=== PATIENT | female | born 1995 | race Caucasian/White ===

== ENCOUNTER → 2021-02-04 14:51 | Outpatient (BNVA) | payer MEDICARE, MEDICAID, SELFPAY | PROVIDERS: PCP Internal Medicine; Visit Provider Surgery Vascular Surgery | DX: I83.11 Varicose veins of right lower extremity with inflammation (principal) | CPT/HCPCS: 99202 ==

== ENCOUNTER 2023-02-08 10:26 | Outpatient (REF) | payer MEDICARE, MEDICAID, SELFPAY ==
--- NOTE | ~2023-02-08 | US_ITS ---
EXAMINATION: US LOWER EXTREMITY VENOUS (REFLUX EXAM), BILATERAL CLINICAL INDICATION: Varicose veins COMPARISON: None. TECHNIQUE: Color flow triplex imaging and compression Doppler was performed to evaluate both the deep and the superficial systems bilaterally. To evaluate the superficial system, the examination was performed in the upright position. Color-flow Doppler ultrasound and compression ultrasound were utilized. In addition, maneuvers were utilized to demonstrate reflux. FINDINGS: RIGHT: 1. DEEP VENOUS ULTRASOUND OF THE RIGHT LOWER EXTREMITY: Common Femoral Vein: Compressible, normal respiratory variation and augmented flow. Popliteal Vein: Compressible, normal augmentation. Deep Venous Reflux: There is no evidence of reflux in the deep system in either the common femoral vein or the popliteal vein. There is no evidence of a Terry's cyst. 2. SUPERFICIAL ULTRASOUND WITH DOPPLER OF RIGHT LOWER EXTREMITY: RIGHT GREAT SAPHENOUS VEIN: Saphenofemoral Junction: 5 mm. No reflux. Proximal Thigh: 2 mm. 3372 ms reflux. Mid Thigh: 3 mm. 3336 ms reflux. Above Knee: 5 mm. 3372 ms reflux. Below Knee: 5 mm. 3284 ms reflux. Mid Calf: 2 mm. 2916 ms reflux. Ankle: 2 mm. 2448 ms reflux. DUPLICATED GREAT SAPHENOUS VEIN: Yes, medially and laterally. Medially: Saphenofemoral junction: 2 mm. No reflux Mid thigh: 2 mm. No reflux Laterally: Saphenofemoral junction: 3 mm. No reflux Mid thigh: 2 mm. No reflux RIGHT SMALL SAPHENOUS VEIN: Proximal: 2 mm. No reflux. Distal: 2 mm. No reflux. PERFORATORS: None LEFT: 1. DEEP VENOUS ULTRASOUND OF THE LEFT LOWER EXTREMITY: Common Femoral Vein: Compressible, normal respiratory variation and augmented flow. Popliteal Vein: Compressible, normal augmentation. Deep Venous Reflux: There is no evidence of reflux in the deep system in either the common femoral vein or the popliteal vein. There is no evidence of a Terry's cyst. 2. SUPERFICIAL ULTRASOUND WITH DOPPLER OF LEFT LOWER EXTREMITY: LEFT GREAT SAPHENOUS VEIN: Saphenofemoral Junction: 5 mm. No reflux. Proximal Thigh: 2 mm. No reflux. Mid Thigh: 2 mm. No reflux. Above Knee: 2 mm. No reflux. Below Knee: 1 mm. No reflux. Mid Calf: 1 mm. No reflux. Ankle: 2 mm. No reflux. DUPLICATED GREAT SAPHENOUS VEIN: None LEFT SMALL SAPHENOUS VEIN: Proximal: 3 mm. 1504 ms reflux. Distal: 2 mm. No reflux. PERFORATORS: None US/US venous duplex LE BI IMPRESSION: 1. Abnormal right great saphenous venous reflux throughout its entire length. 2. Short segment abnormal venous reflux at the saphenofemoral popliteal junction. 3. No evidence of bilateral lower extremity DVT. Abnormal lower extremity venous reflux times: Superficial and deep calf veins: >500 ms Femoropopliteal veins: >1000 ms Perforating veins: >350 ms Labklaudia N, Isidoro J, Saurav L, Ebony AK, Kristian SS, Alessia Jones M, Harrison WH. Definition of venous reflux in lower-extremity veins.J Vasc Surg. 2003; [phone]:[id number].
== END 2023-02-08 10:27 | disposition home or self-care (01) ==
LOC: HO.US 10:26
PROVIDERS: PCP Internal Medicine; Visit Provider Surgery Vascular Surgery
DX: I83.893 Varicose veins of bilateral lower extremities with other complications (principal)
CPT/HCPCS: 93970

== ENCOUNTER 2023-03-04 12:58 | Outpatient (AMB) | payer MEDICARE, MEDICAID, SELFPAY ==
--- NOTE | 2023-03-04 13:02 | A.OFFVIS_ITS ---
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 Complaints include pain over varicosities, swelling of lower extremities, cramping, fatigue, and heaviness of the lower extremities. It has been affecting there daily activities including walking. It is noted more so in right leg. Of note she had seen us back in 2020 and had not followed up with venous insufficiency testing. Also of note she has a history of brain cancer and was treated with chemo and radiation and this dates back to 2019. 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 Patient denies any previous venous surgery or injections. Patient denies any history of DVT/ PE. Patient denies any history of phlebitis. Trial of compression includes - [id number] They now present for vascular evaluation regarding their varicose veins. [facility] Social History Patient Tobacco Use Status: Never used Tobacco Review of Systems Const Reports as per HPI ENT Reports no additional complaints Card Denies chest pain, Denies chest pain at rest and Denies chest pain with activity Resp Denies chest congestion and Denies cough GI Reports no additional complaints Musc Details: pain over varicosities, aching of lower extremities, swelling, cramping, heaviness and tiredness, itching Denies abnormal gait Skin/Breast Reports pruritus and Denies wounds Neuro Reports no additional complaints and Denies abnormal gait Psych Denies no additional complaints Physical Exam Vital Signs: BMI result Body Mass Index 31.9 Const General: cooperative, healthy appearing and comfortable Orientation/consciousness: oriented to person, oriented to place and oriented to time Neck Carotids: no bruits Chest Chest palpation & inspection: normal inspection of the chest and normal palpation of entire chest wall Resp Effort & Inspection: normal respiratory effort and able to speak in complete sentences Cardio Rate: regular rate Heart sounds: S1 normal heart sound present and S2 normal heart sound present Peripheral pulses: Peripheral pulses 2+ throughout GI Inspection: Yes normal to inspection Skin Other: +2 edema CEAP Classification C4 - skin color changes Ep - Etiology Primary As - superficial veins P - reflux General skin exam: dry skin Neuro General: oriented to person, oriented to place and oriented to time Extrem Right lower extremity: full ROM, normal capillary refill and edema Left lower extremity: full ROM, normal capillary refill and edema Psych Mental Status: mental status grossly normal Assessment & Plan Assessment & Plan (1) Varicose veins of right lower extremity with inflammation: Code(s): I83.11 - Varicose veins of right lower extremity with inflammation Plan: In short, the patient has evidence of venous insufficiency. I have discussed the pathophysiology with the patient. In addition I have provided informational material regarding venous disease to the patient. We have discussed conservative measures including compression, elevation, and exercise. I have also provided a handout regarding appropriate use of compression stockings and where to purchase good compression stockings as well. I have taken the liberty of ordering venous insufficiency testing with the patient. They will follow up with me after testing. The patient had an opportunity to ask questions regarding the treatment plan. All questions were answered. Imaging studies, laboratory studies and physical exam results were discussed and reviewed in detail. No major barriers to understanding were identified. The patient expressed understanding and agreement with the above treatment plan. The patient is aware they should contact our office by phone for worsening of the current condition or the appearance of new symptoms. Thank you for allowing me to participate in the vascular care of this patient. If you have any questions or concerns regarding the treatment for the above condition please do not hesitate to contact me. The office telephone contact is [phone]. This note is constructed using voice recognition software. While every effort has been made to ensure accuracy, molasses preparer errors may have been included. Thank you for allowing me to participate in the care of your patient. Yours sincerely, Van Nicholas MD, FACS, R.P.V.I. (2) Lymphedema: Code(s): I89.0 - Lymphedema, not elsewhere classified Plan: She may have an element of lymphedema as well secondary to her history of cancer. We will workup her venous disease 1st. She will follow up with us a fter noninvasive testing. Orders: Orders US venous duplex LE BI 1 Week I83.11 - Varicose veins of right lower extremity with inflammation Coding Level of Care Code New Pt Level 4 (73348) Diagnoses Varicose veins of right lower extremity with inflammation I83.11 Lymphedema I89.0
[2023-03-04 13:06] VITALS: BMI 31.9
== END 2023-03-04 13:46 | disposition home or self-care (01) ==
PROVIDERS: PCP Internal Medicine; Visit Provider Surgery Vascular Surgery
DX: I83.11 Varicose veins of right lower extremity with inflammation (principal); I89.0 Lymphedema, not elsewhere classified
CPT/HCPCS: 99213

== ENCOUNTER → 2023-03-04 12:58 | Outpatient (BNVA) | payer MEDICARE, MEDICAID, SELFPAY | PROVIDERS: PCP Internal Medicine; Visit Provider Surgery Vascular Surgery | DX: I83.11 Varicose veins of right lower extremity with inflammation (principal); I89.0 Lymphedema, not elsewhere classified | CPT/HCPCS: 99212 ==

== ENCOUNTER 2023-03-22 10:38 | Outpatient (AMB) | payer MEDICARE, MEDICAID, SELFPAY ==
--- NOTE | 2023-03-22 10:48 | A.OFFVIS_ITS ---
Intake Intake Visit Reasons: FU Intake Note: pt here for fu pt states that her both her legs are still in pain and she still gets the swelling she states that her right leg is alot worst Allergies No Known Allergies Allergy (Verified 03/22/23 10:50) HPI FU HPI Details Very pleasant 28-year-old female presents for follow-up regarding venous insufficiency. She does have a significantly swollen and uncomfortable right leg. In particular she is concerned about a cluster varicosities in her right calf. She now presents for routine follow-up. She has had no interval issues. She has used compression stockings with minimal relief [facility] Social History Patient Tobacco Use Status: Never used Tobacco Review of Systems Const Reports as per HPI ENT Reports no additional complaints Card Denies chest pain, Denies chest pain at rest and Denies chest pain with activity Resp Denies chest congestion and Denies cough GI Reports no additional complaints Musc Details: pain over varicosities, aching of lower extremities, swelling, cramping, heaviness and tiredness, itching Denies abnormal gait Skin/Breast Reports pruritus and Denies wounds Neuro Reports no additional complaints and Denies abnormal gait Psych Denies no additional complaints Physical Exam Const General: cooperative, healthy appearing and comfortable Orientation/consciousness: oriented to person, oriented to place and oriented to time Neck Carotids: no bruits Chest Chest palpation & inspection: normal inspection of the chest and normal palpation of entire chest wall Resp Effort & Inspection: normal respiratory effort and able to speak in complete sentences Cardio Rate: regular rate Heart sounds: S1 normal heart sound present and S2 normal heart sound present Peripheral pulses: Peripheral pulses 2+ throughout GI Inspection: Yes normal to inspection Skin Other: +2 edema, large rope-like varicosities greater than 4 mm right calf CEAP Classification C4 - skin color changes Ep - Etiology Primary As - superficial veins P - reflux General skin exam: dry skin Neuro General: oriented to person, oriented to place and oriented to time Extrem Right lower extremity: full ROM, normal capillary refill and edema Left lower extremity: full ROM, normal capillary refill and edema Psych Mental Status: mental status grossly normal Results Reviewed Results Reviewed: Brief summary of venous insufficiency testing is as follows: right great saphenous vein: Positive right small saphenous vein: negative right accessory vein: none present left great saphenous vein: negative left small saphenous vein: negative left accessory vein: none present Please note there is no evidence of any venous aneurysms or significant tortuosity Assessment & Plan Assessment & Plan (1) Varicose veins of right lower extremity with inflammation: Code(s): I83.11 - Varicose veins of right lower extremity with inflammation Plan: This patient has varicose veins with inflammation. They continue to be a source of discomfort for the patient. The patient has tried conservative treatment with compression, leg elevation and exercise program for over 3 months time. They have been compliant with all treatment. This has provided minimal relief for the patient. I do not anticipate this course of treatment will alter the underlying etiology. The patient has been scheduled for lower extremity venous treatment inclusive of --- right great saphenous vein Cyanoacralate ablation. Risks, benefits, and complications of this procedure has been discussed in detail with the patient including but not limited to bleeding, infection, and the development of a DVT. The patient has demonstrated a clear understanding and has consented. We will schedule the patient as soon as possible. Thank you for allowing us to participate in this patient's care. If there are any questions or concerns please do not hesitate to contact us. Coding Level of Care Code Est Pt Level 4 (71938) Diagnoses Varicose veins of right lower extremity with inflammation I83.11
== END 2023-03-22 11:08 | disposition home or self-care (01) ==
PROVIDERS: PCP Internal Medicine; Visit Provider Surgery Vascular Surgery
DX: I83.11 Varicose veins of right lower extremity with inflammation (principal)
CPT/HCPCS: 99214

== ENCOUNTER → 2023-03-22 10:38 | Outpatient (BNVA) | payer MEDICARE, MEDICAID, SELFPAY | PROVIDERS: PCP Internal Medicine; Visit Provider Surgery Vascular Surgery | DX: I83.11 Varicose veins of right lower extremity with inflammation (principal) | CPT/HCPCS: 99212 ==

== ENCOUNTER 2023-04-23 09:24 | Outpatient (AMB) | payer MEDICARE, MEDICAID, SELFPAY ==
--- NOTE | 2023-04-23 11:57 | MHC.OFFVIS ---
Intake Vital Signs 04/23/23 11:58 Height 5 ft 3 in Weight 180 lb BMI 31.9 Intake Visit Reasons: Right GSV Venaseal Allergies No Known Allergies Allergy (Verified 03/22/23 10:50) [facility] Social History Patient Tobacco Use Status: Never used Tobacco Physical Exam Vital Signs: BMI result Body Mass Index 31.9 Office Procedures Vascular Office Procedure Details Details: Diagnosis: Right Leg varicose veins with inflammation Procedure: Endovenous Ablation of the right Great Saphenous Vein with VenaSeal Closure System Anesthesia: Local infiltration 5 cc, Estimated Blood Loss: min Specimen: none Duplex ultrasound was used to map out the insufficient saphenous vein, and access was determined and marked on the overlying skin. The depth and diameter of the vein(s) to be treated was documented. The patient was placed supine on the procedure table and the leg was prepped and draped using sterile technique. Ultasound guidance was again used to localize the access site. 1% lidocaine was injected as a local anesthetic in the subcutaneous tissues at the target location in the GSV in the lower leg. Using ultrasound guidance, access was gained at this location with the 19 gauge thin walled access needle and followed by introduction of a short guidewire, location confirmed with ultrasound. A small, 3 mm incision was made at the access site to allow for introduction and placement of the 7 Fr x7cm introducer/dilator. The dilator and guidewire were removed. The 0.035 guidewire from the VenaSeal kit was then introduced and positioned at the saphenofemoral junction using ultrasound guidance. The 80 cm 7 Fr introducer sheath/dilator was positioned 5cm from the saphenofemoral junction. The guidewire and dilator were removed, and the remaining sheath was flushed with sterile saline, with the syringe remaining in place prior to the next steps. The cyanoacrylate adhesive was precisely primed into the 5 F delivery catheter and this catheter/syringe combination was attached within the dispenser gun. This assembly was introduced through the 7F sheath and positioned 5 cm caudal of the saphenofemoral junction under ultrasound guidance. The steps from the IFU were followed for dispensing amounts, locations and compression times, 2 aliquots proximally with 3 minutes of compression, and 1 aliquot every 3 cm distally with 30 sec of compression along the course of the vessel. Following the last injection and compression sequence, the catheter and introducer sheath were pulled out from the access site. Hemostasis was achieved with manual compression and an adhesive bandage was applied to the incision. Ultrasound confirmed complete coaptation and closure of the treated segments of the GSV, and the absence of any DVT at the saphenofemoral junction. Treatment time was approximately 4 minutes and the vein length treated was 20 cm. The drapes were removed and the patient cleaned and prepared for discharge. Post op ultrasound check is scheduled for 48-72 hours and the patient was given written post-op instructions. 49783 - Endoven Ther Chem Adhes 1st All charges added?: Procedure code (CPT) selection complete Assessment & Plan Assessment & Plan (1) Varicose veins of right lower extremity with inflammation: Code(s): I83.11 - Varicose veins of right lower extremity with inflammation Plan: See op note Coding Level of Care Code Procedure Only Diagnoses Varicose veins of right lower extremity with inflammation I83.11 CPT Codes Details - Vascular 3: 49590 - Endoven Ther Chem Adhes 1st ([id number])
[2023-04-23 11:58] VITALS: BMI 31.9
== END 2023-04-23 11:06 | disposition home or self-care (01) ==
PROVIDERS: PCP Internal Medicine; Visit Provider Surgery Vascular Surgery
DX: I83.11 Varicose veins of right lower extremity with inflammation (principal)
CPT/HCPCS: 36482

== ENCOUNTER → 2023-04-23 09:24 | Outpatient (BNVA) | payer MEDICARE, MEDICAID, SELFPAY | PROVIDERS: PCP Internal Medicine; Visit Provider Surgery Vascular Surgery | DX: I83.11 Varicose veins of right lower extremity with inflammation (principal) | CPT/HCPCS: 36482 ==

== ENCOUNTER 2023-05-13 15:11 | Outpatient (REF) | payer MEDICARE, MEDICAID, SELFPAY | END 2023-05-13 15:12 | disposition home or self-care (01) | LOC: HO.US 15:11 | PROVIDERS: PCP Internal Medicine; Visit Provider Surgery Vascular Surgery | DX: M79.604 Pain in right leg (principal) | CPT/HCPCS: 93971 ==

== ENCOUNTER 2023-06-03 10:29 | Outpatient (AMB) | payer MEDICARE, MEDICAID, SELFPAY ==
[2023-06-03 10:33] VITALS: BP 124/80; PULSE 105; O2SAT 99; BMI 33.7
--- NOTE | 2023-06-03 10:33 | A.OFFVIS_ITS ---
Intake Vital Signs 06/03/23 10:33 Height 5 ft 3 in Weight 190 lb BMI 33.7 BP 124/80 Blood Pressure Location Rt brachial Position Sitting Pulse 105 H Pulse Source Pulse Oximeter Pulse Oximetry (%) 99 Oxygen Delivery Method Room Air Intake Visit Reasons: follow up Venaseal Intake Note: Pt presents to the office today for a follow up right venaseal. Pt states she is feeling well and denies any concerns at this time. Allergies No Known Allergies Allergy (Verified 06/03/23 10:34) HPI follow up Venaseal HPI Details Very pleasant 28-year-old female presents for follow-up status post right great saphenous vein Cyanoacralate ablation. This was performed on April 23. She reports that the leg feels significantly better. She did have a follow-up ultrasound on May 13 as she did forget her post procedure visit. It was negative for DVT at that time. She now presents for routine follow-up. [facility] Social History Alcohol intake: never Patient Tobacco Use Status: Never used Tobacco Review of Systems Const All systems reviewed & are unremarkable except as noted in HPI and below Reports no additional complaints ENT Reports Normal hearing present Card Denies chest pain, Denies chest pain at rest, Denies chest pain with activity and Denies pedal edema Resp Denies cough GI Denies abdominal pain Musc Details: pain over varicosities, aching of lower extremities, swelling, cramping, heaviness and tiredness, itching Denies abnormal gait, Denies muscle cramps and Denies radiating pain into limb Skin/Breast Denies skin ulcer and Denies wounds Neuro Reports Normal hearing present and Denies abnormal gait Psych Reports no additional complaints Physical Exam Vital Signs: Last Vital Signs Pulse 105 H 06/03/23 10:33 BP 124/80 06/03/23 10:33 Pulse Ox 99 06/03/23 10:33 Oxygen Delivery Method Room Air 06/03/23 10:33 BMI result Body Mass Index 33.7 Const General: cooperative, healthy appearing and comfortable Orientation/consciousness: oriented to person, oriented to place and oriented to time HEENT Head: Yes normal to inspection Neck Neck: Yes normal visual inspection Carotids: no bruits Chest Chest palpation & inspection: normal inspection of the chest Resp Effort & Inspection: normal respiratory effort and able to speak in complete sentences Auscultation: clear to auscultation bilaterally, no crackles, no rales, no rhonchi and no wheezes Cardio Rate: regular rate Rhythm: regular rhythm Heart sounds: S1 normal heart sound present and S2 normal heart sound present Bruits: no carotid bruits Peripheral pulses: Peripheral pulses 2+ throughout GI Inspection: Yes normal to inspection Skin Other: +2 edema, large rope-like varicosities greater than 4 mm right calf CEAP Classification C4 - skin color changes Ep - Etiology Primary As - superficial veins P - reflux General skin exam: dry skin Wounds: no wounds Hair: normal Neuro General: oriented to person, oriented to place and oriented to time Cranial nerves: Yes CN's II-XII intact bilaterally and Yes Normal hearing present Cognition (Neuro): normal cognition Motor exam (neuro): 5/5 motor strength present throughout Extrem Other: venous exam: No significant superficial varicosities or spider telan giectasias, minimal edema General: No clubbing, No cyanosis and No edema Right lower extremity: full ROM, normal capillary refill and edema Left lower extremity: full ROM, normal capillary refill and edema Psych Appearance: grossly normal Mental Status: mental status grossly normal Speech and movement: Normal speech and movement present Assessment & Plan Assessment & Plan (1) Varicose veins of right lower extremity with inflammation: Comment: 04/23/2024 right great saphenous vein Cyanoacralate ablation Code(s): I83.11 - Varicose veins of right lower extremity with inflammation Plan: This patient has varicose veins with inflammation. They continue to be a source of discomfort for the patient. The patient has tried conservative treatment with compression, leg elevation and exercise program for over 3 months time. They have been compliant with all treatment. This has provided minimal relief for the patient. I do not anticipate this course of treatment will alter the underlying etiology. The patient has been scheduled for lower extremity venous treatment inclusive of --- right leg microphlebectomy. Risks, benefits, and complications of this procedure has been discussed in detail with the pat ient including but not limited to bleeding, infection, and the development of a DVT. The patient has demonstrated a clear understanding and has consented. We will schedule the patient as soon as possible. Thank you for allowing us to participate in this patient's care. If there are any questions or concerns please do not hesitate to contact us. Coding Level of Care Code Est Pt Level 4 (47133) Diagnoses Varicose veins of right lower extremity with inflammation I83.11
== END 2023-06-03 11:00 | disposition home or self-care (01) ==
PROVIDERS: PCP Internal Medicine; Visit Provider Surgery Vascular Surgery
DX: I83.11 Varicose veins of right lower extremity with inflammation (principal)
CPT/HCPCS: 99214

== ENCOUNTER → 2023-06-03 10:29 | Outpatient (BNVA) | payer MEDICARE, MEDICAID, SELFPAY | PROVIDERS: PCP Internal Medicine; Visit Provider Surgery Vascular Surgery | DX: I83.11 Varicose veins of right lower extremity with inflammation (principal) | CPT/HCPCS: 99212 ==

== ENCOUNTER 2023-11-17 14:40 | Outpatient (REF) | payer MEDICARE, MEDICAID, SELFPAY ==
[2023-11-17 18:29] LABS: TSH reflex Free T4 2.83 uIU/mL (0.32-4.0)
== END 2023-11-17 14:41 | disposition home or self-care (01) ==
LOC: HO.CHCLDS 14:40
PROVIDERS: Visit Provider Internal Medicine
DX: F41.9 Anxiety disorder, unspecified (principal)
CPT/HCPCS: 36415; 84443

== ENCOUNTER 2024-11-17 11:03 | Outpatient (REF) | payer MEDICARE, MEDICAID, SELFPAY ==
--- OUTSIDE RECORDS SUMMARY | 2024-11-17 11:41 | XMS_ITS | Patient Health Record ---
Author Organization [facility] Address [address] [place] [id number] Care Team Providers Care Glassie Name Role Phone RADHA RODRIGUEZ Unavailable [phone] Reason For Referral No Information Medications Medication SIG (Take, Route, Frequency, Duration) Notes Start Date End Date Status Mirtazapine 7.5 MG 2 tablets at bedtime Orally Once a day; Duration: 30 day(s) 0.5 tab at bedtime prn Active clonazePAM 0.5 MG 1 tablet at bedtime Orally BID Active LaMICtal 200 MG 1 tablet Orally Once a day; Duration: 30 day(s) 550mg daily (2 200mg tabs, one 150mg tab) Active Keppra 750 MG 1 tablet Orally Twic e a day; Duration: 30 day(s) 2.5 tabs every 12 hrs (1875mg every 12 hr) Active Social History Tobacco Use: Social History Observation Description Date Details (start date - stop date) Never Smoker NA - NA Tobacco Use/Smoking Question Answer Notes Are you a nonsmoker Alcohol Screen (Audit-C) Question Answer Notes Did you have a drink containing alcohol in the p ast year? No Points 0 Interpretation Negative Problems Problem Type SNOMED Code ICD Code Onset Dates Problem Status W/U Status Risk Notes Problem SI - Stress incontinence (03949379) Stress incontinence (female) (male) (N39.3) Active confirmed Problem Malignant neoplasm of brain (630598371) Malignant neoplasm of brain, unspecified (C71.9) Active confirmed Plan Of Treatment Pending Test Test Name Order Date Urinalysis 03/09/2019 ANTI-HEPATITIS C 03/09/2019 HEP. B SURF. AG 03/09/2019 THIN PREP, HPV IF ASCUS (21-29YR) 2018 SYPHILIS TESTING 03/09/2019 HIV AB-AG 4TH GENERATION 03/09/2019 ULTRASOUND 03/18/2020 Medical (General) History Medical History History ICD Code Headache 784.0 Malignant neoplasm of brain, unspecified C71.9 Anxiety disorder, unspecified F41.9 Major depressive disorder, recurrent, mi ld F33.0 Surgical History Surgery Date(Month/Year) Crainiotomy - initial tumor debulking 2016 Crainiotomy - recurrent tumor debulking (99.9% removed) 07/2018 Appendix 2013 Hospitalization History Reason Date(Month/Year)
--- OUTSIDE RECORDS SUMMARY | 2024-11-17 11:41 | XMS_ITS | Clinical Summary ---
Author Organization [facility] Address [address] [place] [phone] Phone Care Team Providers Care Manager Programming Name Role Phone Unavailable Primary Care Provider Unavailabl e Immunizations Immunization Administration Dates Next Due DTP 01/01/1998, 5,1993, 994,1993 HPV, Quadrivalent 11/06/2008 Hep B, ped/adol 1993,1993,1993 Hib (PRP-T) 04/16/1994, 4,1993, 993 IPV 1993,1993,1993 MMR 01/15/1997,04/09/1994 Meningococcal Conj (Menactra) MCV4P 07/27/2005 OPV 01/01/1998 Tdap 07/27/2005 Varicella 11/06/2008,01/01/1998 Family History Relation Name Status Comments Father Alive Father: Alive a nd well Maternal Grandfather Materna l grandfather: Hypertension Maternal Grandmother Materna l grandmother: Elevated cholesterol, cardiac, Diabetes mellitus Mother Mother: gestati onal diabetes Other Family history of spinabifida Social History Tobacco Use Types Packs/Day Years Used Date Smoking Tobacco: Never Assessed Comments Unknown Sex and Gender Information Value Date Recorded Sex Assigned at Not on file Legal Sex Female 4:39 PM EDT Gender Identity Not on file Sexual Orientation Not on file Plan of Treatment Health Maintenance Due Date Last Done Comments HPV Vaccines (2 - 3-dose series) 12/04/2008 11/06/2008 DTaP,Tdap,and Td Vaccines (7 - Td or Tdap) 07/28/2015 07/27/2005, 01/01/1998, 07/30/1994, Additional history exists COVID-19 Vaccine ( season) 2024 Influenza Vaccines (#1) 2024 Hepatitis B Vaccines Completed 1993, 1993, 1993 HIB Vaccines Completed 04/16/1994, 12/1993, 1993, Additional history exists MMR Vaccines Completed 01/15/1997, 04/09/1994 IPV Vaccines Completed 01/01/1998, 12/1993, 1993, Additional history exists Meningococcal Vaccine Aged Out 07/27/2005 No annamaria cindy eligible based on patient's age to complete this topic Varicella Vaccines Completed 11/06/2008, 01/01/1998 Hepatitis A Vaccines Aged Out No long er eligible based on patient's age to complete this topic Men B Vaccine Aged Out No longer elig ible based on patient's age to complete this topic Pneumococcal Vaccine Aged Out No long er eligible based on patient's age to complete this topic
--- OUTSIDE RECORDS SUMMARY | 2024-11-17 11:41 | XMS_ITS | Data Portability ---
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 --November 26, 2021 2 weeks of transient spontaneous onset of episodic random abnormal odors, once or twice a day, sometimes every other day context living next to a [employer]. 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 --November 27, 2021 lamotrigine 8.6 on 400 mg 8 AM/400 mg 8 PM --April 26, 2023: No seizures or auras, on antiseizure medications as detailed in the plan below, daily headaches that I newly appreciate, partially better with amitriptyline 10 mg every evening from neuro-oncology. I offered to increase the amitriptyline and take over management to 1.5 tablets of the 10 mg pill every evening and if that does not help enough, 2 tablets. She likes this idea. She will share my note from the patient portal with the psychiatrist so they understand the extent to which the clonazepam may be partially for her anxiety but may also be for breakthrough seizure; and they understand that Zyprexa and Wellbutrin could cause side effects in the past. Lamotrigine level on 400 mg twice a day May 16, 2021 is 8.2. This documents an appropriate level without side effects Compared to 12.12 June 2020 as the level where she had transient double vision, on 475 mg twice a day. To review, in October 2019, when there was likely toxicity, lamotrigine was 25 On 550 mg lamotrigine twice a day. Subsequent lamotrigine lab result, when she was without symptoms, November 2019 On lamotrigine 475 mg twice a day, revealed 15.1, high end of normal. 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 The accuracy of a single blood level maybe less than +/ -3 for the maximum throughout the day. Toxicity may have emerged as she has lost weight. Levetiracetam is apparently at a good dosage, 1000 g twice a day. I had concerned that tiredness in recent past was from levetiracetam, as recently as early 2020. 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 Anxiety medications, mirtazapine and clonazepam, are at a good level. She lowered her mirtazapine by herself as far as I could understand June 19, 2020. She has wondered whether she needs it for anxiety and/or sleep. I have never been clear whether clonazepam, when introduced, addressed to breakthrough seizures or anxiety. Clonazepam is not a first-line medication for long-term control of either anxiety or seizures. However, as things are going so well, I am not concerned suggest any changes. If she wants to reduce medication at some point, I will suggest reduction of clonazepam first as opposed to reduction of mirtazapine. 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 In June 2020 she started using a new apt that she downloaded that is for epilepsy that helps her track her medication and reminds her to take her medication. It has the ability to share with her provider. I tell her about our patient portal which is about change from [facility] [employer] to [employer]. Once the changes made she will think about sharing via the [employer] portal. PLAN Elyssa Hernadez April 26, 2023 To help right sided Headaces: I will take over management from neuro-oncology of the amitriptyline to increase amitriptyline: Amitriptyline 10 mg tablets, 1.5-2.0 tablets every evening. Start with 1.5 tablets. Wait 1 month and if this is not enough to go up to 2 tablets if there are no side effects. Watch out for side effects of dry mouth or tiredness TO PREVENT SEIZURES: CONTINUE LAMOTRIGINE 2 FULL 200 mg tablets (400mg) lamotrigine 2 tablets 8 AM & 8PM CONTINUE levetiracetam 1000 mg tablets, 1 tab every 8 AM and 8 PM FOR ANXIETY AND SLEEP AND BLURRY VISION ISSUES: CONTINUE clonazepam 0.5 mg tablets, one tablet 6 AM, at waking, one tablet 2 PM FOR ANXIETY AND SLEEP CONTINUE Mirtazapine 15 -mg tablets, 1.0 tablets every night, 7pm, which is one hour before bedtime. On your personal cell phone, please continue using an alarm every 12 hours for your medication to help you remember. 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 --November 26, 2021 2 weeks of transient spontaneous onset of episodic random abnormal odors, once or twice a day, sometimes every other day context living next to a [employer]. 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 --November 27, 2021 lamotrigine 8.6 on 400 mg 8 AM/400 mg 8 PM --April 26, 2023: No seizures or auras, on antiseizure medications as detailed in the plan below, daily headaches that I newly appreciate, partially better with amitriptyline 10 mg every evening from neuro-oncology. July 20, 2023 headache no better and new dry mouth on amitriptyline 10 mg => 20 mg; no seizures; still anxious at bedtime. >>>>>>>>>>>>July 20, 2023 First priority is to get away from the new side effect. She agrees to decrease amitriptyline back down to 10 mg. As I took over the amitriptyline, I will stay in charge of management at this smaller dose which has helped partially with headache. Next two priorities are different directions for the headache and new pharmacological treatment direction for her anxiety. I will ask her which is higher priority next time. If it is the anxiety at bedtime, and if [facility] is not moving toward a psychiatric medication provider (as I had hoped in April, but which seems not true now, just neuropsych and psychotherapy psychotherapy is a good thing), and I will consider increasing the mirtazapine headache is the higher priority, I will consider an adjunct to the amitriptyline 10 mg, perhaps a CGRP inhibitor medication >>>>>>>>>>>>[facility] 2022 She will share my note from the patient portal with the psychiatrist so they understand the extent to which the clonazepam may be partially for her anxiety but may also be for breakthrough seizure; and they understand that Zyprexa and Wellbutrin could cause side effects in the past. Lamotrigine level on 400 mg twice a day May 16, 2021 is 8.2. This documents an appropriate level without side effects Compared to 12.12 June 2020 as the level where she had transient double vision, on 475 mg twice a day. To review, in October 2019, when there was likely toxicity, lamotrigine was 25 On 550 mg lamotrigine twice a day. Subsequent lamotrigine lab result, when she was without symptoms, November 2019 On lamotrigine 475 mg twice a day, revealed 15.1, high end of normal. 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 The accuracy of a single blood level maybe less than +/ -3 for the maximum throughout the day. Toxicity may have emerged as she has lost weight. Levetiracetam is apparently at a good dosage, 1000 g twice a day. I had concerned that tiredness in recent past was from levetiracetam, as recently as early 2020. 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 Anxiety medications, mirtazapine and clonazepam, are at a good level. She lowered her mirtazapine by herself as far as I could understand June 19, 2020. She has wondered whether she needs it for anxiety and/or sleep. I have never been clear whether clonazepam, when introduced, addressed to breakthrough seizures or anxiety. Clonazepam is not a first-line medication for long-term control of either anxiety or seizures. However, as things are going so well, I am not concerned suggest any changes. If she wants to reduce medication at some point, I will suggest reduction of clonazepam first as opposed to reduction of mirtazapine. 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 In June 2020 she started using a new apt that she downloaded that is for epilepsy that helps her track her medication and reminds her to take her medication. It has the ability to share with her provider. I tell her about our patient portal which is about change from [employer] to [employer]. Once the changes made she will think about sharing via the [employer] portal. PLAN Elyssa Hernadez July 20, 2023 To help right sided Headaces , but remobve dry mouth: Amitriptyline 10 mg tablets, 2 -> 1 tablets every evening. TO PREVENT SEIZURES: CONTINUE LAMOTRIGINE 2 FULL 200 mg tablets (400mg) lamotrigine 2 tablets 8 AM & 8PM CONTINUE levetiracetam 1000 mg tablets, 1 tab every 8 AM and 8 PM FOR ANXIETY AND SLEEP AND BLURRY VISION ISSUES: CONTINUE clonazepam 0.5 mg tablets, one tablet 6 AM, at waking, one tablet 2 PM FOR ANXIETY AND SLEEP CONTINUE Mirtazapine 15 -mg tablets, 1.0 tablets every night, 7pm, which is one hour before bedtime. On your personal cell phone, please continue using an alarm every 12 hours for your medication to help you remember. 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 --November 26, 2021 2 weeks of transient spontaneous onset of episodic random abnormal odors, once or twice a day, sometimes every other day context living next to a [employer]. 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 --November 27, 2021 lamotrigine 8.6 on 400 mg 8 AM/400 mg 8 PM --April 26, 2023: No seizures or auras, on antiseizure medications as detailed in the plan below, daily headaches that I newly appreciate, partially better with amitriptyline 10 mg every evening from neuro-oncology. July 20, 2023 headache no better and new dry mouth on amitriptyline 10 mg => 20 mg; no seizures; still anxious at bedtime. --October 18, 2023 no seizures; headache better with using sunglasses; dry mouth better with amitriptyline down to 10 mg; no longer feeling anxious at bedtime. >>>>>>>>>>>>October 18, 2023 We agreed to keep medications the same, as detailed in scripts below. >>>>>>>>>>>>July 20, 2023 First priority is to get away from the new side effect. She agrees to decrease amitriptyline back down to 10 mg. As I took over the amitriptyline, I will stay in charge of management at this smaller dose which has helped partially with headache. Next two priorities are different directions for the headache and new pharmacological treatment direction for her anxiety. I will ask her which is higher priority next time. If it is the anxiety at bedtime, and if [facility] is not moving toward a psychiatric medication provider (as I had hoped in April, but which seems not true now, just neuropsych and psychotherapy psychotherapy is a good thing), and I will consider increasing the mirtazapine headache is the higher priority, I will consider an adjunct to the amitriptyline 10 mg, perhaps a CGRP inhibitor medication >>>>>>>>>>>>[facility] 2022 She will share my note from the patient portal with the psychiatrist so they understand the extent to which the clonazepam may be partially for her anxiety but may also be for breakthrough seizure; and they understand that Zyprexa and Wellbutrin could cause side effects in the past. Lamotrigine level on 400 mg twice a day May 16, 2021 is 8.2. This documents an appropriate level without side effects Compared to 12.12 June 2020 as the level where she had transient double vision, on 475 mg twice a day. To review, in October 2019, when there was likely toxicity, lamotrigine was 25 On 550 mg lamotrigine twice a day. Subsequent lamotrigine lab result, when she was without symptoms, November 2019 On lamotrigine 475 mg twice a day, revealed 15.1, high end of normal. 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 The accuracy of a single blood level maybe less than +/ -3 for the maximum throughout the day. Toxicity may have emerged as she has lost weight. Levetiracetam is apparently at a good dosage, 1000 g twice a day. I had concerned that tiredness in recent past was from levetiracetam, as recently as early 2020. 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 Anxiety medications, mirtazapine and clonazepam, are at a good level. She lowered her mirtazapine by herself as far as I could understand June 19, 2020. She has wondered whether she needs it for anxiety and/or sleep. I have never been clear whether clonazepam, when introduced, addressed to breakthrough seizures or anxiety. Clonazepam is not a first-line medication for long-term control of either anxiety or seizures. However, as things are going so well, I am not concerned suggest any changes. If she wants to reduce medication at some point, I will suggest reduction of clonazepam first as opposed to reduction of mirtazapine. 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 In June 2020 she started using a new apt that she downloaded that is for epilepsy that helps her track her medication and reminds her to take her medication. It has the ability to share with her provider. I tell her about our patient portal which is about change from [facility] [employer] to [employer]. Once the changes made she will think about sharing via the [employer] portal. PLAN Elyssa Hernadez October 18, 2023 To help right sided Headaces , but remove dry mouth: Amitriptyline 10 mg tablets, 1 tablets every evening. TO PREVENT SEIZURES: CONTINUE LAMOTRIGINE 2 FULL 200 mg tablets (400mg) lamotrigine 2 tablets 8 AM & 8PM CONTINUE levetiracetam 1000 mg tablets, 1 tab every 8 AM and 8 PM FOR ANXIETY AND SLEEP AND BLURRY VISION ISSUES: CONTINUE clonazepam 0.5 mg tablets, one tablet 6 AM, at waking, one tablet 2 PM FOR ANXIETY AND SLEEP CONTINUE Mirtazapine 15 -mg tablets, 1.0 tablets every night, 7pm, which is one hour before bedtime. On your personal cell phone, please continue using an alarm every 12 hours for your medication to help you remember. 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 --November 26, 2021 2 weeks of transient spontaneous onset of episodic random abnormal odors, once or twice a day, sometimes every other day context living next to a [employer]. 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 --November 27, 2021 lamotrigine 8.6 on 400 mg 8 AM/400 mg 8 PM --April 26, 2023: No seizures or auras, on antiseizure medications as detailed in the plan below, daily headaches that I newly appreciate, partially better with amitriptyline 10 mg every evening from neuro-oncology. July 20, 2023 headache no better and new dry mouth on amitriptyline 10 mg => 20 mg; no seizures; still anxious at bedtime. --October 18, 2023 no seizures; headache better with using sunglasses; dry mouth better with amitriptyline down to 10 mg; no longer feeling anxious at bedtime. >>>>>>>>>>>>On License [facility] 2023 continuing seizure-free. Continuing without tumor recurrence as of ~3 months ago, on a q4-month surveillance schedule with oncology. Headaches bothering her more. >>>>>>>>>>>>On License Of [facility] 2023 We will make no changes to medications for seizure, anxiety or sleep as detailed in plan below. Amitriptyline for headache has been taken over by her headaches schedule specialist, as detailed in the plan below. My office is a bit of a trip for her from [place] but closer than [place]. She had not known that I have some experience with treating headaches, as a neurologist. I am happy to have her continue with the neurologist/headac he specialist in [place], but if she wants to work with me, for her headache, we can arrange that as well. There would have to be a definitive decision. This is especially true dealing with medication such as Ajovy, who her headache specialist is trying to get approved. Two healthcare providers cannot both get approval for prescription of the same medication for a single patient. She understands. She will think about this. If she works with me, we can arrange that a first administration of Ajovy can be with a sample, in the office, with me guiding administration to minimize her apprehension about the pen injection >>>>>>>>>>>>October 18, 2023 We agreed to keep medications the same, as detailed in scripts below. >>>>>>>>>>>>July 20, 2023 First priority is to get away from the new side effect. She agrees to decrease amitriptyline back down to 10 mg. As I took over the amitriptyline, I will stay in charge of management at this smaller dose which has helped partially with headache. Next two priorities are different directions for the headache and new pharmacological treatment direction for her anxiety. I will ask her which is higher priority next time. If it is the anxiety at bedtime, and if [facility] is not moving toward a psychiatric medication provider (as I had hoped in April, but which seems not true now, just neuropsych and psychotherapy psychotherapy is a good thing), and I will consider increasing the mirtazapine headache is the higher priority, I will consider an adjunct to the amitriptyline 10 mg, perhaps a CGRP inhibitor medication >>>>>>>>>>>>[facility] 2022 She will share my note from the patient portal with the psychiatrist so they understand the extent to which the clonazepam may be partially for her anxiety but may also be for breakthrough seizure; and they understand that Zyprexa and Wellbutrin could cause side effects in the past. Lamotrigine level on 400 mg twice a day May 16, 2021 is 8.2. This documents an appropriate level without side effects Compared to 12.12 June 2020 as the level where she had transient double vision, on 475 mg twice a day. To review, in October 2019, when there was likely toxicity, lamotrigine was 25 On 550 mg lamotrigine twice a day. Subsequent lamotrigine lab result, when she was without symptoms, November 2019 On lamotrigine 475 mg twice a day, revealed 15.1, high end of normal. 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 The accuracy of a single blood level maybe less than +/ -3 for the maximum throughout the day. Toxicity may have emerged as she has lost weight. Levetiracetam is apparently at a good dosage, 1000 g twice a day. I had concerned that tiredness in recent past was from levetiracetam, as recently as early 2020. 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 Anxiety medications, mirtazapine and clonazepam, are at a good level. She lowered her mirtazapine by herself as far as I could understand June 19, 2020. She has wondered whether she needs it for anxiety and/or sleep. I have never been clear whether clonazepam, when introduced, addressed to breakthrough seizures or anxiety. Clonazepam is not a first-line medication for long-term control of either anxiety or seizures. However, as things are going so well, I am not concerned suggest any changes. If she wants to reduce medication at some point, I will suggest reduction of clonazepam first as opposed to reduction of mirtazapine. 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 In June 2020 she started using a new apt that she downloaded that is for epilepsy that helps her track her medication and reminds her to take her medication. It has the ability to share with her provider. I tell her about our patient portal which is about change from [employer] to [employer]. Once the changes made she will think about sharing via the [employer] portal. PLAN Elyssa Hernadez March 30, 2024 Right sided Headaces Amitriptyline, continue with your new headache specialist in [place]; with higher dose casuing dry mouth, previously without dry mouth at reduced down dosage (since [facility] 2023) of 10 mg tablets, 1 tablets every evening. TO PREVENT SEIZURES: CONTINUE LAMOTRIGINE 2 FULL 200 mg tablets (400mg) lamotrigine 2 tablets 8 AM & 8PM CONTINUE levetiracetam 1000 mg tablets, 1 tab every 8 AM and 8 PM FOR ANXIETY AND SLEEP AND BLURRY VISION ISSUES: CONTINUE clonazepam 0.5 mg tablets, one tablet 6 AM, at waking, one tablet 2 PM FOR ANXIETY AND SLEEP CONTINUE Mirtazapine 15 -mg tablets, 1.0 tablets every night, 7pm, which is one hour before bedtime. On your personal cell phone, please continue using an alarm every 12 hours for your medication to help you remember. 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 --November 26, 2021 2 weeks of transient spontaneous onset of episodic random abnormal odors, once or twice a day, sometimes every other day context living next to a [employer]. 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 --November 27, 2021 lamotrigine 8.6 on 400 mg 8 AM/400 mg 8 PM --April 26, 2023: No seizures or auras, on antiseizure medications as detailed in the plan below, daily headaches that I newly appreciate, partially better with amitriptyline 10 mg every evening from neuro-oncology. July 20, 2023 headache no better and new dry mouth on amitriptyline 10 mg => 20 mg; no seizures; still anxious at bedtime. --October 18, 2023 no seizures; headache better with using sunglasses; dry mouth better with amitriptyline down to 10 mg; no longer feeling anxious at bedtime. --March 30, 2024 continuing seizure-free. Continuing without tumor recurrence as of ~3 months ago, on a q4-month surveillance schedule with oncology. Headaches bothering her more. --August 21, 2024 blurry vision and nausea 5-6 times per month; no symptoms to suggest seizure; no tumor recurrence 4 months ago, oncology follow-up tomorrow. Headache still bothering her Ajovy too expensive. >>>>>>>>>>>>August 21, 2024 I will send lamotrigine level. As discussed in HPI, if high lamotrigine is not the answer, I will focus on interaction with headache. She has wondered whether clonazepam increase would treat this. This is not my first thought. We will reevaluate in general if it is not lamotrigine level or headache. >>>>>>>>>>>>On License Of [facility] er 2023 No changes >>>>>>>>>>>>October 18, 2023 We agreed to keep medications the same, as detailed in scripts below. >>>>>>>>>>>>July 20, 2023 First priority is to get away from the new side effect. She agrees to decrease amitriptyline back down to 10 mg. As I took over the amitriptyline, I will stay in charge of management at this smaller dose which has helped partially with headache. Next two priorities are different directions for the headache and new pharmacological treatment direction for her anxiety. I will ask her which is higher priority next time. If it is the anxiety at bedtime, and if [facility] is not moving toward a psychiatric medication provider (as I had hoped in April, but which seems not true now, just neuropsych and psychotherapy psychotherapy is a good thing), and I will consider increasing the mirtazapine headache is the higher priority, I will consider an adjunct to the amitriptyline 10 mg, perhaps a CGRP inhibitor medication >>>>>>>>>>>>Dece er 2022 She will share my note from the patient portal with the psychiatrist so they understand the extent to which the clonazepam may be partially for her anxiety but may also be for breakthrough seizure; and they understand that Zyprexa and Wellbutrin could cause side effects in the past. Lamotrigine level on 400 mg twice a day May 16, 2021 is 8.2. This documents an appropriate level without side effects Compared to 12.12 June 2020 as the level where she had transient double vision, on 475 mg twice a day. To review, in October 2019, when there was likely toxicity, lamotrigine was 25 On 550 mg lamotrigine twice a day. Subsequent lamotrigine lab result, when she was without symptoms, November 2019 On lamotrigine 475 mg twice a day, revealed 15.1, high end of normal. 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 The accuracy of a single blood level maybe less than +/ -3 for the maximum throughout the day. Toxicity may have emerged as she has lost weight. Levetiracetam is apparently at a good dosage, 1000 g twice a day. I had concerned that tiredness in recent past was from levetiracetam, as recently as early 2020. 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 Anxiety medications, mirtazapine and clonazepam, are at a good level. She lowered her mirtazapine by herself as far as I could understand June 19, 2020. She has wondered whether she needs it for anxiety and/or sleep. I have never been clear whether clonazepam, when introduced, addressed to breakthrough seizures or anxiety. Clonazepam is not a first-line medication for long-term control of either anxiety or seizures. However, as things are going so well, I am not concerned suggest any changes. If she wants to reduce medication at some point, I will suggest reduction of clonazepam first as opposed to reduction of mirtazapine. 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 In June 2020 she started using a new apt that she downloaded that is for epilepsy that helps her track her medication and reminds her to take her medication. It has the ability to share with her provider. I tell her about our patient portal which is about change from [facility] to [facility]. Once the changes made she will think about sharing via the [employer] portal. PLAN Elyssa Hernadez August 21, 2024 Lamotrigine level TO PREVENT SEIZURES: CONTINUE LAMOTRIGINE 2 FULL 200 mg tablets (400mg) lamotrigine 2 tablets 8 AM & 8PM CONTINUE levetiracetam 1000 mg tablets, 1 tab every 8 AM and 8 PM FOR ANXIETY AND SLEEP AND BLURRY VISION ISSUES: CONTINUE clonazepam 0.5 mg tablets, one tablet 6 AM, at waking, one tablet 2 PM FOR ANXIETY AND SLEEP CONTINUE Mirtazapine 15 -mg tablets, 1.0 tablets every night, 7pm, which is one hour before bedtime. On your personal cell phone, please continue using an alarm every 12 hours for your medication to help you remember. Right sided Headaces Amitriptyline, continue with your new headache specialist in [place]; with higher dose casuing dry mouth, previously without dry mouth at reduced down dosage (since July 2023) of 10 mg tablets, 1 tablets every evening. Follow-up 6 months [email or web address] Not available 08/21/2024 12:48:36 Plan of Treatment Reminders Order Date Submit Date Provider Last Modified By Organization Details Last Modified Time Details Appointments FOLLOW UP EXT 2024 12:00P M Charles Quintero MD PhD Not available Not available Not available Lab lamotrigi ne, serum - g40.9 2024 025 SHRADDHA [facility] (Centralized Electronic Ordering - All Locations), Patient Can Go To The Location Of Their Choice, [id number] 10/30/2024 15:05:59 Referral None recorded. Procedures None recorded. Surgeries None recorded. Imaging None recorded. Medication Orders mirtazapi ne 15 mg tablet 2024 025 [facility] #[id number], [address], [place], [id number], 08/21/2024 12:29:59 lamotrigi ne 200 mg tablet 2024 025 [facility] #[id number], [address], [place], [id number], 08/21/2024 12:29:59 levetirac etam 1,000 mg tablet 2024 025 [facility] #[id number], [address] [facility], [place], [place], [id number], 08/21/2024 12:30:04 mirtazapi ne 15 mg tablet 2023 024 [facility] #[id number], [address] [facility], [place], [place], [id number], 03/30/2024 12:46:56 lamotrigi ne 200 mg tablet 2023 024 [facility] #[id number], [address], [place], [id number], 03/30/2024 12:46:55 levetirac etam 1,000 mg tablet 2023 024 [facility] #29619, [address] [facility] [place], [id number], 03/30/2024 12:46:54 mirtazapi ne 15 mg tablet 2023 024 [facility] #03494, [address], [place], [id number], 10/18/2023 12:41:23 lamotrigi ne 200 mg tablet 2023 024 [facility] #[id number], [address], [place], [id number], 10/18/2023 12:41:22 levetirac etam 1,000 mg tablet 2023 024 [facility] #04802, [address], [place], [id number], 10/18/2023 12:41:11 amitripty line 10 mg tablet 2023 024 [facility] #47918, [address] [facility], [place], [id number], 10/18/2023 12:41:10 mirtazapi ne 15 mg tablet 2023 024 [facility] #50182, [address] [facility], [place], [id number], 07/20/2023 11:13:11 lamotrigi ne 200 mg tablet 2023 024 [facility] #60977, [address] [facility], [place], [id number], 07/20/2023 11:13:09 levetirac etam 1,000 mg tablet 2023 024 [facility] #85044, [address] [facility], [place], [id number], 07/20/2023 11:13:09 amitripty line 10 mg tablet 2023 024 [facility] #[id number], [address] [facility], [place], [id number], 07/20/2023 11:13:10 mirtazapi ne 15 mg tablet 2022 023 [facility] #[id number], [address] [facility] [place], [id number], 04/26/2023 15:04:00 lamotrigi ne 200 mg tablet 2022 023 [facility] #[id number], [address] [facility] [place], [id number], 04/26/2023 15:04:12 levetirac etam 1,000 mg tablet 2022 023 [facility] #21908, [address], [place], [id number], 04/26/2023 15:04:05 amitripty line 10 mg tablet 2022 023 [facility] #[id number], [address], [place], [id number], 04/26/2023 15:04:42 Patient TargetsNo targets recorded. Patient Instructions Encounter Date Encounter Id Patient Instructions Last Modified By Organization Details Last Modified Time 04/26/2023 [id number] PREVIOUS MEDICATION Wellbutrin SR 100 mg in the morning, no help for breakthrough anxiety after May 24, 2019 office visit. 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 Previous discussions: September 10, 2022 She wonders whether she should change her lamotrigine, perhaps only during her menses. I believe the breakthrough aura of burning smell is too infrequent to change the medication, given history of side effects from lamotrigine toxicity more than once in the past. Her level now is well within the normal range and lamotrigine dosing is usually linearly related to blood level but this is not always the case. We discussed this and decide against any medication change. Should I change medication, I would do it at every administration, not just during menses. She has breakthrough burning smell away from menses as well. I do not believe this is catamenial epilepsy. Tumor related seizure is a different category. Background: 2010 or before onset of focal seizures episodic of sudden onset brief episodes lasting 1 minute, more recently up to 5 minutes, of dj vu followed by losing breath, sense of doom, falling feeling, and abnormal taste, lightheadedness and sweatiness. I think it most likely that the shifting winds are bringing the to Mccabe aroma to her olfactory sensorium. I have asked her to go to the bathroom window which faces the [employer] intermittently and try to correlate whether the [place] aroma is there and whether it is especially strong when she has onset of aroma sensation of kielbasa. Nevertheless, we will get lamotrigine level. If there is room, we will consider increase of medication. If she cannot find a correlation with a strong odor from the factory and if the sensation goes away with such a medication increase, then I will advise her to contact oncology in [place] to consider October 17, 2019 to review: For the third visit in a row, all is going well. The last issue was June 2020 blurry vision that seem to have been due to lamotrigine dose too high and was fixed by lamotrigine reduction to its present 400 mg twice a day dose. November 20, 2019: She feels much better, no imbalance, no nausea emesis, on a reduced lamotrigine dose from 550 down to 475 mg twice a day, making quite likely that lamotrigine toxicity related to her imbalance and bad double vision and emesis at the end of October 2019. Her lamotrigine dosage had not changed from April 2019 when her level was normal. The only medication difference from then was she was on Temodar. There should not be interaction. She mentions that she has lost weight, 30 pounds. Perhaps this is the issue for the high lamotrigine. I had been thinking that clonazepam, started June 07, 2019, is likely most likely treating anxiety and that the blurry vision is not a new form of seizure aura. I do not believe blurry vision in May 2019 for which clonazepam was started related to lamotrigine toxicity. If they did, then clonazepam would not have helped. Lamotrigine estrogen interaction: She has followed through on changing her previous estrogen based oral contraceptive to a non-estrogen based pill with her marketing representative after our previous discussion that lamotrigine can decrease the effectiveness of estrogen based control. The data on this is quite mixed, certainly not as definitive as with topiramate or oxcarbazepine. BILLING November 26, 2021: Chronic illness posing a threat to life, drug therapy requiring intensive monitoring for toxicity mrossen Not available 04/26/2023 15:30:46 07/20/2023 [id number] PREVIOUS MEDICATION Wellbutrin SR 100 mg in the morning, no help for breakthrough anxiety after May 24, 2019 office visit. 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 Previous discussions: September 10, 2022 She wonders whether she should change her lamotrigine, perhaps only during her menses. I believe the breakthrough aura of burning smell is too infrequent to change the medication, given history of side effects from lamotrigine toxicity more than once in the past. Her level now is well within the normal range and lamotrigine dosing is usually linearly related to blood level but this is not always the case. We discussed this and decide against any medication change. Should I change medication, I would do it at every administration, not just during menses. She has breakthrough burning smell away from menses as well. I do not believe this is catamenial epilepsy. Tumor related seizure is a different category. Background: 2010 or before onset of focal seizures episodic of sudden onset brief episodes lasting 1 minute, more recently up to 5 minutes, of dj vu followed by losing breath, sense of doom, falling feeling, and abnormal taste, lightheadedness and sweatiness. I think it most likely that the shifting winds are bringing the to Mccabe aroma to her olfactory sensorium. I have asked her to go to the bathroom window which faces the [employer] intermittently and try to correlate whether the [employer] aroma is there and whether it is especially strong when she has onset of aroma sensation of kielbasa. Nevertheless, we will get lamotrigine level. If there is room, we will consider increase of medication. If she cannot find a correlation with a strong odor from the factory and if the sensation goes away with such a medication increase, then I will advise her to contact oncology in [place] to consider October 17, 2019 to review: For the third visit in a row, all is going well. The last issue was June 2020 blurry vision that seem to have been due to lamotrigine dose too high and was fixed by lamotrigine reduction to its present 400 mg twice a day dose. November 20, 2019: She feels much better, no imbalance, no nausea emesis, on a reduced lamotrigine dose from 550 down to 475 mg twice a day, making quite likely that lamotrigine toxicity related to her imbalance and bad double vision and emesis at the end of October 2019. Her lamotrigine dosage had not changed from April 2019 when her level was normal. The only medication difference from then was she was on Temodar. There should not be interaction. She mentions that she has lost weight, 30 pounds. Perhaps this is the issue for the high lamotrigine. I had been thinking that clonazepam, started June 07, 2019, is likely most likely treating anxiety and that the blurry vision is not a new form of seizure aura. I do not believe blurry vision in May 2019 for which clonazepam was started related to lamotrigine toxicity. If they did, then clonazepam would not have helped. Lamotrigine estrogen interaction: She has followed through on changing her previous estrogen based oral contraceptive to a non-estrogen based pill with her marketing representative after our previous discussion that lamotrigine can decrease the effectiveness of estrogen based control. The data on this is quite mixed, certainly not as definitive as with topiramate or oxcarbazepine. BILLING November 26, 2021: Chronic illness posing a threat to life, drug therapy requiring intensive monitoring for toxicity yessenia Not available 07/20/2023 10:45:46 10/18/2023 [id number] PREVIOUS MEDICATION Wellbutrin SR 100 mg in the morning, no help for breakthrough anxiety after May 24, 2019 office visit. 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 Previous discussions: September 10, 2022 She wonders whether she should change her lamotrigine, perhaps only during her menses. I believe the breakthrough aura of burning smell is too infrequent to change the medication, given history of side effects from lamotrigine toxicity more than once in the past. Her level now is well within the normal range and lamotrigine dosing is usually linearly related to blood level but this is not always the case. We discussed this and decide against any medication change. Should I change medication, I would do it at every administration, not just during menses. She has breakthrough burning smell away from menses as well. I do not believe this is catamenial epilepsy. Tumor related seizure is a different category. Background: 2010 or before onset of focal seizures episodic of sudden onset brief episodes lasting 1 minute, more recently up to 5 minutes, of dj vu followed by losing breath, sense of doom, falling feeling, and abnormal taste, lightheadedness and sweatiness. I think it most likely that the shifting winds are bringing the to Mccabe aroma to her olfactory sensorium. I have asked her to go to the bathroom window which faces the [employer] intermittently and try to correlate whether the [employer] aroma is there and whether it is especially strong when she has onset of aroma sensation of kielbasa. Nevertheless, we will get lamotrigine level. If there is room, we will consider increase of medication. If she cannot find a correlation with a strong odor from the factory and if the sensation goes away with such a medication increase, then I will advise her to contact oncology in [place] to consider October 17, 2019 to review: For the third visit in a row, all is going well. The last issue was June 2020 blurry vision that seem to have been due to lamotrigine dose too high and was fixed by lamotrigine reduction to its present 400 mg twice a day dose. November 20, 2019: She feels much better, no imbalance, no nausea emesis, on a reduced lamotrigine dose from 550 down to 475 mg twice a day, making quite likely that lamotrigine toxicity related to her imbalance and bad double vision and emesis at the end of October 2019. Her lamotrigine dosage had not changed from April 2019 when her level was normal. The only medication difference from then was she was on Temodar. There should not be interaction. She mentions that she has lost weight, 30 pounds. Perhaps this is the issue for the high lamotrigine. I had been thinking that clonazepam, started June 07, 2019, is likely most likely treating anxiety and that the blurry vision is not a new form of seizure aura. I do not believe blurry vision in May 2019 for which clonazepam was started related to lamotrigine toxicity. If they did, then clonazepam would not have helped. Lamotrigine estrogen interaction: She has followed through on changing her previous estrogen based oral contraceptive to a non-estrogen based pill with her marketing representative after our previous discussion that lamotrigine can decrease the effectiveness of estrogen based control. The data on this is quite mixed, certainly not as definitive as with topiramate or oxcarbazepine. BILLING November 26, 2021: Chronic illness posing a threat to life, drug therapy requiring intensive monitoring for toxicity yessenia Not available 10/18/2023 12:24:18 03/30/2024 [id number] PREVIOUS MEDICATION Wellbutrin SR 100 mg in the morning, no help for breakthrough anxiety after May 24, 2019 office visit. 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 Previous discussions: September 10, 2022 She wonders whether she should change her lamotrigine, perhaps only during her menses. I believe the breakthrough aura of burning smell is too infrequent to change the medication, given history of side effects from lamotrigine toxicity more than once in the past. Her level now is well within the normal range and lamotrigine dosing is usually linearly related to blood level but this is not always the case. We discussed this and decide against any medication change. Should I change medication, I would do it at every administration, not just during menses. She has breakthrough burning smell away from menses as well. I do not believe this is catamenial epilepsy. Tumor related seizure is a different category. Background: 2010 or before onset of focal seizures episodic of sudden onset brief episodes lasting 1 minute, more recently up to 5 minutes, of dj vu followed by losing breath, sense of doom, falling feeling, and abnormal taste, lightheadedness and sweatiness. I think it most likely that the shifting winds are bringing the to Mccabe aroma to her olfactory sensorium. I have asked her to go to the bathroom window which faces the [employer] intermittently and try to correlate whether the [employer] aroma is there and whether it is especially strong when she has onset of aroma sensation of kielbasa. Nevertheless, we will get lamotrigine level. If there is room, we will consider increase of medication. If she cannot find a correlation with a strong odor from the factory and if the sensation goes away with such a medication increase, then I will advise her to contact oncology in [place] to consider October 17, 2019 to review: For the third visit in a row, all is going well. The last issue was June 2020 blurry vision that seem to have been due to lamotrigine dose too high and was fixed by lamotrigine reduction to its present 400 mg twice a day dose. November 20, 2019: She feels much better, no imbalance, no nausea emesis, on a reduced lamotrigine dose from 550 down to 475 mg twice a day, making quite likely that lamotrigine toxicity related to her imbalance and bad double vision and emesis at the end of October 2019. Her lamotrigine dosage had not changed from April 2019 when her level was normal. The only medication difference from then was she was on Temodar. There should not be interaction. She mentions that she has lost weight, 30 pounds. Perhaps this is the issue for the high lamotrigine. I had been thinking that clonazepam, started June 07, 2019, is likely most likely treating anxiety and that the blurry vision is not a new form of seizure aura. I do not believe blurry vision in May 2019 for which clonazepam was started related to lamotrigine toxicity. If they did, then clonazepam would not have helped. Lamotrigine estrogen interaction: She has followed through on changing her previous estrogen based oral contraceptive to a non-estrogen based pill with her marketing representative after our previous discussion that lamotrigine can decrease the effectiveness of estrogen based control. The data on this is quite mixed, certainly not as definitive as with topiramate or oxcarbazepine. BILLING November 26, 2021: Chronic illness posing a threat to life, drug therapy requiring intensive monitoring for toxicity yessenia Not available 03/30/2024 12:20:35 08/21/2024 [id number] PREVIOUS MEDICATION Wellbutrin SR 100 mg in the morning, no help for breakthrough anxiety after May 24, 2019 office visit. 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 Previous discussions: September 10, 2022 She wonders whether she should change her lamotrigine, perhaps only during her menses. I believe the breakthrough aura of burning smell is too infrequent to change the medication, given history of side effects from lamotrigine toxicity more than once in the past. Her level now is well within the normal range and lamotrigine dosing is usually linearly related to blood level but this is not always the case. We discussed this and decide against any medication change. Should I change medication, I would do it at every administration, not just during menses. She has breakthrough burning smell away from menses as well. I do not believe this is catamenial epilepsy. Tumor related seizure is a different category. Background: 2010 or before onset of focal seizures episodic of sudden onset brief episodes lasting 1 minute, more recently up to 5 minutes, of dj vu followed by losing breath, sense of doom, falling feeling, and abnormal taste, lightheadedness and sweatiness. I think it most likely that the shifting winds are bringing the to [place] aroma to her olfactory sensorium. I have asked her to go to the bathroom window which faces the [employer] intermittently and try to correlate whether the [employer] aroma is there and whether it is especially strong when she has onset of aroma sensation of kielbasa. Nevertheless, we will get lamotrigine level. If there is room, we will consider increase of medication. If she cannot find a correlation with a strong odor from the factory and if the sensation goes away with such a medication increase, then I will advise her to contact oncology in [place] to consider October 17, 2019 to review: For the third visit in a row, all is going well. The last issue was June 2020 blurry vision that seem to have been due to lamotrigine dose too high and was fixed by lamotrigine reduction to its present 400 mg twice a day dose. November 20, 2019: She feels much better, no imbalance, no nausea emesis, on a reduced lamotrigine dose from 550 down to 475 mg twice a day, making quite likely that lamotrigine toxicity related to her imbalance and bad double vision and emesis at the end of October 2019. Her lamotrigine dosage had not changed from April 2019 when her level was normal. The only medication difference from then was she was on Temodar. There should not be interaction. She mentions that she has lost weight, 30 pounds. Perhaps this is the issue for the high lamotrigine. I had been thinking that clonazepam, started June 07, 2019, is likely most likely treating anxiety and that the blurry vision is not a new form of seizure aura. I do not believe blurry vision in May 2019 for which clonazepam was started related to lamotrigine toxicity. If they did, then clonazepam would not have helped. Lamotrigine estrogen interaction: She has followed through on changing her previous estrogen based oral contraceptive to a non-estrogen based pill with her marketing representative after our previous discussion that lamotrigine can decrease the effectiveness of estrogen based control. The data on this is quite mixed, certainly not as definitive as with topiramate or oxcarbazepine. BILLING November 26, 2021: Chronic illness posing a threat to life, drug therapy requiring intensive monitoring for toxicity yessenia Not available 08/21/2024 12:14:34 Reason for Referral None Reported. Results Created Date Observation Date Name Description Value Unit Range Abnormal Flag Note LastModifiedBy Organization Detail LastModifiedTime 10/28/1910/30/2024 LAMOT RIGIN E (LAMI CTAL) , SERUM lamotrigine, serum 20.8 ug/mL 2.0-20 .0 alert high Sean ified by repea t abraham sis Detec tion Limit = 1.0 Not Available [facility] ([facility]) [address] [facility] [address], [place], [address], 10/30/2024 15:05:58 Result Notes None recorded. Procedures Surgical History Date Name Laterality Status Provider Name and Address Organization Details Recorded Time 08/21/2024 DATA REVIEW completed Charles Quintero MD [address] [place] [address] [place], [phone], [facility] [place] 08/21/2024 12:14:33 03/30/2024 DATA REVIEW completed Charles Quintero MD [address] [place] [address] [place], [phone], [facility] 03/30/2024 12:20:34 10/18/2023 DATA REVIEW completed Charles Quintero MD [address] [place] [address] [place], [phone], [facility] 10/18/2023 12:24:16 07/20/2023 DATA REVIEW completed Charles Quintero MD [address] [place], [place] [address], [phone], [facility] 07/20/2023 10:45:46 04/26/2023 DATA REVIEW completed Charles Quintero MD [address] [place], [place] [address], [phone], [facility] 04/26/2023 14:46:47 09/10/2022 DATA REVIEW completed Charles Quintero MD [address] [place], [place] [address], [phone], [facility] 09/10/2022 12:37:02 11/26/2021 DATA REVIEW completed Charles Quintero MD [address] [place], [place] [address], [phone], [facility] 11/26/2021 08:36:38 10/16/2021 DATA REVIEW completed Charles Quintero MD [address] [place], [place] [address], [phone], [facility] 10/16/2021 17:29:54 04/10/2021 DATA REVIEW completed Charles Quintero MD [address] [place], [place] [address], [phone], [facility] 04/10/2021 12:35:03 10/03/2020 DATA REVIEW completed Charles Quintero MD [address] [place], [place] [address], [phone], [facility] 10/03/2020 08:31:02 Imaging Results None recorded. Procedure Notes None recorded. Medical Equipment None Reported. Medications Name Sig Start Date Stop Date Status Note LastModified by Organization Details LastModified Time tretinoin 0.1 % topical cream APPLY THIN LAYER TO DRY FACE EVERY OTHER NIGHT WORKING UP TO NIGHTLY TOLERATE D FOR ACNE active Not Available Not Available No t Available lamotrigin e 150 mg tablet TAKE 1/2 TABLET BY MOUTH TWICE DAILY 04/10 completed dose change Not Available Not Available Not Available lamotrigin e 200 mg tablet TAKE 2 TABLETS BY MOUTH TWICE DAILY active Not Available Not Available No t Available azithromyc in 250 mg tablet active Not Available Not Available Not Available fluconazol e 150 mg tablet TAKE 1 TABLET BY MOUTH ONCE THEN REPEAT IN 72 HOURS active Not Available Not Available No t Available levetirace nazario 500 mg tablet TAKE 2 TABLETS BY MOUTH TWICE DAILY 10/03 completed Not Available Not Available Not Available tretinoin 0.025 % topical cream active Not Available Not Available Not Available metronidaz ole 0.75 % (37.5 mg/5 gram) vaginal gel INSERT 1 APPLICAT ORFUL VAGINALL Y EVERY NIGHT AT BEDTIME FOR 5 DAYS active Not Available Not Available No t Available clonazepam 0.5 mg tablet TAKE 1 TABLET BY MOUTH AT 6AM AND 1 TABLET AT 2PM active Not Available Not Available No t Available clonazepam 1 mg tablet TAKE 1/2 TABLET BY MOUTH DAILY AT 6 AM AND AT 2 PM 05/23 completed Not Available Not Available Not Available metronidaz ole 500 mg tablet TAKE 1 TABLET BY MOUTH TWICE DAILY. NO ALCOHOL WHILE TAKING THIS AND FOR 3 DAYS AFTER active Not Available Not Available No t Available tretinoin 0.05 % topical cream APPLY A PEA-SIZE D AMOUNT TO DRY FACE EVERY OTHER DAY AT NIGHT WOKING UP TO EVERY NIGHT TOLERATE D active Not Available Not Available No t Available methocarba mol 750 mg tablet TK 1 T PO BID PRN P OR SPASM active Not Available Not Available No t Available clindamyci n 1 % topical gel APPLY TWICE DAILY TO INFLAMED LESIONS WASH WITH HIBICLEN S DAILY FOR PREVENTI ON active Not Available Not Available No t Available amitriptyl ine 10 mg tablet TAKE 2 TABLETS BY MOUTH AT BEDTIME active Not Available Not Available No t Available benzonatat e 100 mg capsule TAKE 1 CAPSULE BY MOUTH THREE TIMES DAILY FOR 5 DAYS FOR COUGH active Not Available Not Available No t Available rizatripta n 10 mg disintegra ting tablet active Not Available Not Available Not Available omeprazole 20 mg capsule,de layed release TAKE 1 CAPSULE BY MOUTH DAILY TAKE ON AN ON AN EMPTY STOMACH 30 MINUTES BEFORE BREAKFAS T active Not Available Not Available No t Available levetirace nazario 750 mg tablet 10/03 completed Not Available Not Available Not Available mirtazapin e 15 mg tablet TAKE 1 TABLET BY MOUTH AT BEDTIME active Not Available Not Available No t Available ibuprofen 600 mg tablet TK 1 T PO TID P OR FEVER active Not Available Not Available No t Available metoclopra mide 10 mg tablet TK 1 T PO QID PRN FOR N AND VOMITING active Not Available Not Available No t Available amoxicilli n 875 mg-potassi um clavulanat e 125 mg tablet active Not Available Not Available Not Available azelaic acid 15 % topical gel APPLY TO FACE EVERY AM FOR ROSACEA USE NON-COME DOGENIC MOISTURI ZER 10 MINUTES AFTER APPLYING CAN USE TWICE DAILY IF NO SIDE EFFECTS active Not Available Not Available No t Available levetirace nazario 1,000 mg tablet TAKE 1 TABLET BY MOUTH EVERY 12 HOURS active Not Available Not Available No t Available sodium fluoride 1.1 %-potassiu m nitrate 5 % dental paste APPLY A PEA SIZED AMOUNT ON BRUSH AND BRUSH THOROUGH LY TWICE DAILY active Not Available Not Available No t Available GaviLyte-G 236 gram-22.74 gram-6.74 gram-5.86 gram oral solution TAKE 240 ML EVERY 10 MINUTES active Not Available Not Available No t Available Nithya 0.25 mg-0.035 mg tablet TAKE 1 TABLET BY MOUTH EVERY DAY active Not Available Not Available No t Available Emgality 120 mg/mL subcutaneo us syringe INJECT 1ML SUBCUTAN EOUS ONCE MONTHLY active Not Available Not Available No t Available Vitals None Recorded Social History None recorded. Functional Status None recorded. Mental Status None recorded. Family History Nothing Reported. Medical History No medical history recorded. Gynecological HistoryNo gynecological history recorded. Obstetrics History GPAL:G 0 P 0 0 0 0 Past Encounters Encounter ID Performer Location Encounter Start Date Encounter Closed Date Diagnosis/Indication Diagnosis SNOMED-CT Code Diagnosis ICD10 Code Diagnosis Note [id number] Charles Quintero MD [facility] [address] [place] [address] [place] [address] 10/03/2020 08:19:55 10/03/2020 10:57:36 Focal onset epileptic seizure 06900329 G40.109 Focal onse t impaired awareness epileptic seizure 803697090 G40.209 Primary ma lignant neoplasm of cerebrum 12758834 C71.0 [id number] Charles Quintero MD [facility] [address] [place] [address] [place] [id number] 04/10/2021 12:11:00 04/10/2021 17:20:20 Focal onset epileptic seizure 29258667 G40.109 Focal onse t impaired awareness epileptic seizure 849347878 G40.209 Primary ma lignant neoplasm of cerebrum 80299885 C71.0 [id number] Charles Quintero MD [facility] [address] [place] [address] [place] [address] 10/16/2021 17:05:15 10/20/2021 08:39:20 Focal onset epileptic seizure 34455071 G40.109 Focal onse t impaired awareness epileptic seizure 542332493 G40.209 Primary ma lignant neoplasm of cerebrum 25915171 C71.0 [id number] Charles Quintero MD [facility] [address] [place] [address] [place] [address] 11/26/2021 08:31:21 11/26/2021 09:23:25 Focal onset epileptic seizure 30569139 G40.109 Focal onse t impaired awareness epileptic seizure 816394050 G40.209 Primary ma lignant neoplasm of cerebrum 74562737 C71.0 [id number] Charles Quintero MD [facility] [address] [place] [address] [place] [address] 09/10/2022 12:13:09 09/10/2022 16:13:21 Focal onset epileptic seizure 51415883 G40.109 Focal onse t impaired awareness epileptic seizure 560030072 G40.209 Primary ma lignant neoplasm of cerebrum 94024401 C71.0 [id number] Charles Quintero MD [facility] [address] [place] [address] [place] [address] 04/26/2023 14:35:49 04/26/2023 17:06:19 Focal onset epileptic seizure 51617961 G40.109 Focal onse t impaired awareness epileptic seizure 516122949 G40.209 Primary ma lignant neoplasm of cerebrum 81837394 C71.0 Migraine without aura 56 161023 G43.009 [id number] Charles Quintero MD [facility] [address] [place] [address] [place] [id number] 07/20/2023 10:42:55 07/20/2023 11:22:23 Focal onset epileptic seizure 03015945 G40.109 Focal onse t impaired awareness epileptic seizure 471082599 G40.209 Primary ma lignant neoplasm of cerebrum 08195054 C71.0 Migraine without aura 56 462153 G43.009 [id number] Charles Quintero MD [facility] [address] [place] [address] [place] [id number] 10/18/2023 11:50:28 10/18/2023 17:06:57 Focal onset epileptic seizure 90402124 G40.109 Focal onse t impaired awareness epileptic seizure 321365149 G40.209 Primary ma lignant neoplasm of cerebrum 26079245 C71.0 Migraine without aura 56 297260 G43.009 [id number] Charles Quintero MD [facility] [address] [place] [address] [place] [address] 03/30/2024 11:58:49 03/30/2024 15:57:10 Focal onset epileptic seizure 02396337 G40.109 Focal onse t impaired awareness epileptic seizure 845928239 G40.209 Primary ma lignant neoplasm of cerebrum 89765748 C71.0 Migraine without aura 56 507447 G43.009 [id number] Charles Quintero MD [facility] [address] [place] [address] [place] [address] 08/21/2024 11:51:33 08/21/2024 16:42:14 Focal onset epileptic seizure 24131185 G40.109 Focal onse t impaired awareness epileptic seizure 669400914 G40.209 Primary ma lignant neoplasm of cerebrum 28826369 C71.0 Migraine without aura 56 738014 G43.009 Health Concerns Section Related Observation LastModified by Organization Detai ls LastModified Time None Recorded Concern Status LastModified by Organization Details LastModified Time None Recorded Advance Directives Directive None Recorded Payers Insurance Date Sequence Insurance Name Policy Number Policy Blanco Covered Member ID Blanco Member ID Guarantor Name 08/29/2020 1 *SELF PAY* Cely Hernadez 08/21/2024 2 [place] Elyssa Hernadez [id number] Elyssa Hernadez 08/20/2024 1 [place] [employer] Elyssa Hernadez [id number] Elyssa Hernadez Notes Date Note Type Note Provider Name and Address Organization Details Recorded Time 04/26/2023 text/html Follow-up of foc al seizures, exacerbated by tumor recurrence. Seizure episodes began 2010 or before with episodes of dj vu followed by several other symptoms, without loss of consciousness or responsiveness. 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 She is accompanied vy her 4-year-old Komal; ; not present: significant other and her yourger daughter, Day. >>>>>>>>>>>>>>>>>>>>> April 26, 2023Since September 10, 2022 neurology follow-up encounter, she has had no symptoms to suggest seizure or even aura, not even once in a blue wright burning smell that she had reported in September 2022. She continues on her main antiseizure medications, lamotrigine 400 mg twice a day and levetiracetam 1000 mg twice a day without side effects. The last dosage change was reduction of lamotrigine from 475 mg twice a day October 03, 2020, with associated resolution of blurry vision episodes.She also continues on the clonazepam 0.5 mg every 6 AM and 2 PM, which had been four daily episodes of uncertain etiology, possibly breakthrough seizure, possibly anxiety, possibly a combination. In any case, they continue to help with the sensation that she was having before that medication. However, she is having residual chronic symptoms of anxiety that is quite uncomfortable. She has psychiatry appointment at [facility] at the beginning of 2023 to address this.He continues with neuro-oncology intermittent follow-ups to monitor her tumor. March 30, 2023 follow-up showed no growth. She mentioned to the neuro oncologist daily headaches for as long as I can remember in her taoism, at least on the right, going down the side of her head and neck. Prescribed amitriptyline 10 mg daily and this has helped without side effects. She is down from ibuprofen 600 mg three times a day down to ibuprofen 600 mg once a day and the headache stays away until the next day. In addition, the headache has stayed localized in her taoism as opposed to previously extending down the side of her head and neck. She continues with light sensitivity, however.She also has had some stomach discomfort for which omeprazole has been started without side effects and with resolution of the stomach discomfort.Her two children are healthy and are doing well. >>>>>>>>>>>>>>>>>>>>> September 10, 2022Since November 26, 2021 neurology follow-up encounter, she has been doing well. The only issue continues to be smells. She continues to have occasional smells of [place] the context of the local [employer] factory next-door.However, once in a blue wright, she will have a burning smell reminiscent of seizure aura like phenomena she has had in the past. This may happen at any time but is more likely during her menses. There have been no other episodes to suggest characteristics of her seizure: No unusual d j vu, sense of doom, unexplainable sweatiness or tiredness.She continues on lamotrigine 400 mg twice a day and levetiracetam 1000 mg a day without any side effects. The last dosage change was reduction of lamotrigine from 475 mg twice a day with associated resolution of blurry vision episodes.Her mood is good. She continues on clonazepam 0.5 mg tablets at 6 AM and 2 PM; and mirtazapine 15 mg 7 PM, 1 hour before bedtime. Her two children are doing well, the baby , now 4 years old, with her today. Her fianc is doing well, at work currently.Her April and July follow-ups with oncology went well with no tumor growth found at both follow-ups. >>>>>>>>>>>>>>>>>>>>> November 26ince October 2021 neurology follow-up encounter, she has been doing fine until about 2 weeks ago when she started having random smells concerning her for seizure. The smell is one of kielbasa, not the weird smell, which she used to have, which she now specifies more particularly as often a burnt smell. This has been happening 0-2 times per day. There has not been increasing frequency. She has been making more kielbasa recently. She also lives next to a local [employer] factory.(!)She has not been missing any of her medications and we go through them particularly. No one else has changed any other medications. She has no new diagnoses. We reviewed that her last follow-up with oncology in [place] was September 1999 BRAIN MRI AT THAT TIME REFLECTED STABLE RESIDUAL TUMOR.She continues on lamotrigine 400 mg twice a day and levetiracetam 1000 mg a day without any side effects. The last dosage change was reduction of lamotrigine from 475 mg twice a day with associated resolution of blurry vision episodes. There has been no unusual tiredness, rocio vu, sense of doom or unexplainable sweatiness. She remains on clonazepam 0.5 mg twice a day which has been both for anxiety and for symptoms that seem to be seizures breakthrough in the morning and again in the afternoon. Her mood remains good on mirtazapine 15 mg at bedtime and she is sleeping well.Her two children are doing well. She is doing well with her fianc who proposed to her Mother's Day, 2020. >>>>>>>>>>>>>>>>>>>>> Presenting symptomatology is reviewed from initial neurology consultation January 22, 2017: She has had weird anxiety events since she was in high school (graduating class of 2010, although she dropped out and subsequently got GED). An event always starts with a sense of dj vu. She subsequently has a feeling of losing her breath, a sudden sense of doom, a feeling like she is falling as well as lightheadedness and sweatiness; she gets a taste in her mouth, chemical like. An event typically lasts about 1 minute. There is no reduction of awareness or responsiveness. Afterwards, she feels extremely tired but otherwise asymptomatic. Historically, they seemed to have always happened after she is worked up about something. Caffeine makes an event much more likely. Events happen at least once a month, not more than once a week. Her last 2 events were January 10 and January 18. At least one recent event scared her because it occurred when she was not worked up about anything, and it was longer than previous, up to 5 minutes. She cannot say whether of events have become more or less frequent in recent months. Meanwhile, on October 28, 2016, she had onset of a bad headache with emesis. She became paralyzed on her left side. Her memory for subsequent events of the next day or so is patchy. She was admitted to [facility] and diagnosed with a right temporal lobe/insular tumor. She was given steroids for 4 weeks and then had surgery November [address] Yanes. 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 She reports that only one chemotherapy agent could be offered to her because of the pathology analysis. This one has especially potent potential side effects. She has had a second opinion at [facility] and declined both chemotherapy and second surgery for resection of residual tumor which has significant attendant risks. She has also declined proton beam radiation therapy. Again per chart, single modality radiation is not indicated. Charles Quintero MD [address] [place] [address] [place], [phone], [facility] 04/26/2023 15:33:17 07/20/2023 text/html Follow-up of foc al seizures, exacerbated by tumor recurrence. Seizure episodes began 2010 or before with episodes of dj vu followed by several other symptoms, without loss of consciousness or responsiveness. 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 She is accompanied jasony her 4-year-old Komal; ; not present: significant other and her yourger daughter, Day. >>>>>>>>>>>>>>>>>>>>> July 20, 2023Since April 26, 2023 neurology follow-up encounter, she increased amitriptyline 10 mg nightly up to 15 mg nightly for a month and then up to 20 mg nightly and this has not helped her headaches more. Has caused dry mouth at both increased doses. She continues with headache but only needing one 600 mg dose of ibuprofen daily, and improvement that she reached from three doses daily before she started amitriptyline 10 mg nightly under auspices of neuro-oncology.She again has had no symptoms exact seizure or aura none of that. She continues on her main antiseizure medications, lamotrigine 400 mg twice a day and levetiracetam 1000 mg twice a day without side effects. The last dosage change was reduction of lamotrigine from 475 mg twice a day October 03, 2020, with associated resolution of blurry vision episodes.She also continues on the clonazepam 0.5 mg every 6 AM and 2 PM, which had been four daily episodes of uncertain etiology, possibly breakthrough seizure, possibly anxiety, possibly a combination. In any case, they continue to help with the sensation that she was having before that medication. However, she is having residual chronic symptoms of anxiety that is quite uncomfortable.She details that this is a feeling of internal shaking as she is going to sleep. She has seen [facility] neuropsychology for cognitive issues. They gave her referral for psychotherapy. She is unsure if this person was someone who could prescribe psychiatric medications. I asked her to ask at a follow-up. I also asked her to talk to oncology for a referral to someone such as this take over her anxiety. If they cannot, then I will continue prescribing for her anxiety.She continues with neuro-oncology intermittent follow-up and she just had her most recent follow-up and everything was fine. Her children are doing fine. >>>>>>>>>>>>>>>>>>>>> April 26, 2023Since September 10, 2022 neurology follow-up encounter, she has had no symptoms to suggest seizure or even aura, not even once in a blue wright burning smell that she had reported in September 2022. She continues on her main antiseizure medications, lamotrigine 400 mg twice a day and levetiracetam 1000 mg twice a day without side effects. The last dosage change was reduction of lamotrigine from 475 mg twice a day October 03, 2020, with associated resolution of blurry vision episodes.She also continues on the clonazepam 0.5 mg every 6 AM and 2 PM, which had been four daily episodes of uncertain etiology, possibly breakthrough seizure, possibly anxiety, possibly a combination. In any case, they continue to help with the sensation that she was having before that medication. However, she is having residual chronic symptoms of anxiety that is quite uncomfortable. She has psychiatry appointment at [facility] at the beginning of 2023 to address this.He continues with neuro-oncology intermittent follow-ups to monitor her tumor. March 30, 2023 follow-up showed no growth. She mentioned to the neuro oncologist daily headaches for as long as I can remember in her taoism, at least on the right, going down the side of her head and neck. Prescribed amitriptyline 10 mg daily and this has helped without side effects. She is down from ibuprofen 600 mg three times a day down to ibuprofen 600 mg once a day and the headache stays away until the next day. In addition, the headache has stayed localized in her taoism as opposed to previously extending down the side of her head and neck. She continues with light sensitivity, however.She also has had some stomach discomfort for which omeprazole has been started without side effects and with resolution of the stomach discomfort.Her two children are healthy and are doing well. >>>>>>>>>>>>>>>>>>>>> September 10, 2022Since November 26, 2021 neurology follow-up encounter, she has been doing well. The only issue continues to be smells. She continues to have occasional smells of [place] the context of the local [employer] a factory next-door.However, once in a blue wright, she will have a burning smell reminiscent of seizure aura like phenomena she has had in the past. This may happen at any time but is more likely during her menses. There have been no other episodes to suggest characteristics of her seizure: No unusual d j vu, sense of doom, unexplainable sweatiness or tiredness.She continues on lamotrigine 400 mg twice a day and levetiracetam 1000 mg a day without any side effects. The last dosage change was reduction of lamotrigine from 475 mg twice a day with associated resolution of blurry vision episodes.Her mood is good. She continues on clonazepam 0.5 mg tablets at 6 AM and 2 PM; and mirtazapine 15 mg 7 PM, 1 hour before bedtime. Her two children are doing well, the baby , now 4 years old, with her today. Her fianc is doing well, at work currently.Her April and July follow-ups with oncology went well with no tumor growth found at both follow-ups. >>>>>>>>>>>>>>>>>>>>> November 26ince October 2021 neurology follow-up encounter, she has been doing fine until about 2 weeks ago when she started having random smells concerning her for seizure. The smell is one of [place], not the weird smell, which she used to have, which she now specifies more particularly as often a burnt smell. This has been happening 0-2 times per day. There has not been increasing frequency. She has been making more kielbasa recently. She also lives next to a local [employer] factory.(!)She has not been missing any of her medications and we go through them particularly. No one else has changed any other medications. She has no new diagnoses. We reviewed that her last follow-up with oncology in [place] was September 1999 BRAIN MRI AT THAT TIME REFLECTED STABLE RESIDUAL TUMOR.She continues on lamotrigine 400 mg twice a day and levetiracetam 1000 mg a day without any side effects. The last dosage change was reduction of lamotrigine from 475 mg twice a day with associated resolution of blurry vision episodes. There has been no unusual tiredness, rocio vu, sense of doom or unexplainable sweatiness. She remains on clonazepam 0.5 mg twice a day which has been both for anxiety and for symptoms that seem to be seizures breakthrough in the morning and again in the afternoon. Her mood remains good on mirtazapine 15 mg at bedtime and she is sleeping well.Her two children are doing well. She is doing well with her fianc who proposed to her Mother's Day, 2020. >>>>>>>>>>>>>>>>>>>>> Presenting symptomatology is reviewed from initial neurology consultation January 22, 2017: She has had weird anxiety events since she was in high school (graduating class of 2010, although she dropped out and subsequently got GED). An event always starts with a sense of dj vu. She subsequently has a feeling of losing her breath, a sudden sense of doom, a feeling like she is falling as well as lightheadedness and sweatiness; she gets a taste in her mouth, chemical like. An event typically lasts about 1 minute. There is no reduction of awareness or responsiveness. Afterwards, she feels extremely tired but otherwise asymptomatic. Historically, they seemed to have always happened after she is worked up about something. Caffeine makes an event much more likely. Events happen at least once a month, not more than once a week. Her last 2 events were January 10 and January 18. At least one recent event scared her because it occurred when she was not worked up about anything, and it was longer than previous, up to 5 minutes. She cannot say whether of events have become more or less frequent in recent months. Meanwhile, on October 28, 2016, she had onset of a bad headache with emesis. She became paralyzed on her left side. Her memory for subsequent events of the next day or so is patchy. She was admitted to [facility] and diagnosed with a right temporal lobe/insular tumor. She was given steroids for 4 weeks and then had surgery November [address] Yanes. 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 She reports that only one chemotherapy agent could be offered to her because of the pathology analysis. This one has especially potent potential side effects. She has had a second opinion at [facility] and declined both chemotherapy and second surgery for resection of residual tumor which has significant attendant risks. She has also declined proton beam radiation therapy. Again per chart, single modality radiation is not indicated. Charles Quintero MD [address] [place] [address], [id number], [facility] Neurology [facility] 07/20/2023 11:13:09 10/18/2023 text/html Follow-up of foc al seizures, exacerbated by tumor recurrence. Seizure episodes began 2010 or before with episodes of dj vu followed by several other symptoms, without loss of consciousness or responsiveness. 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 She is accompanied jasony her 4-year-old Komal; ; not present: significant other and her yourger daughter, Day.>>>>>>>>>>>>October 18, 2023Since July 20, 2023 Neurology follow-up encounter she is doing great. She again has had no symptoms to suggest seizure or aura. She is having no symptoms to suggest side effects from her medications, and not from lamotrigine in particular.She has reduced amitriptyline from 20 mg nightly to 10 mg nightly. Her dry mouth is better.Headaches are not really bothering her. They occur 2-5 times per week but they are mild and short as ibuprofen takes care of them. She has discovered that she wears sunglasses this helps a lot in reducing headache severity and frequency. Bright light is a big trigger.Anxiety is not bothering her either.She has recently had her neuro-oncology follow-up in [place] and imaging again shows stable/no change situation status post partial tumor resection.Her daughter is excited about starting school in January and that the patient is excited about this as well. >>>>>>>>>>>>>>>>>>>>> July 20, 2023Since April 26, 2023 neurology follow-up encounter, she increased amitriptyline 10 mg nightly up to 15 mg nightly for a month and then up to 20 mg nightly and this has not helped her headaches more. Has caused dry mouth at both increased doses. She continues with headache but only needing one 600 mg dose of ibuprofen daily, and improvement that she reached from three doses daily before she started amitriptyline 10 mg nightly under auspices of neuro-oncology.She again has had no symptoms exact seizure or aura none of that. She continues on her main antiseizure medications, lamotrigine 400 mg twice a day and levetiracetam 1000 mg twice a day without side effects. The last dosage change was reduction of lamotrigine from 475 mg twice a day October 03, 2020, with associated resolution of blurry vision episodes.She also continues on the clonazepam 0.5 mg every 6 AM and 2 PM, which had been four daily episodes of uncertain etiology, possibly breakthrough seizure, possibly anxiety, possibly a combination. In any case, they continue to help with the sensation that she was having before that medication. However, she is having residual chronic symptoms of anxiety that is quite uncomfortable.She details that this is a feeling of internal shaking as she is going to sleep. She has seen [facility] and [facility] neuropsychology for cognitive issues. They gave her referral for psychotherapy. She is unsure if this person was someone who could prescribe psychiatric medications. I asked her to ask at a follow-up. I also asked her to talk to oncology for a referral to someone such as this take over her anxiety. If they cannot, then I will continue prescribing for her anxiety.She continues with neuro-oncology intermittent follow-up and she just had her most recent follow-up and everything was fine. Her children are doing fine. >>>>>>>>>>>>>>>>>>>>> April 26, 2023Since September 10, 2022 neurology follow-up encounter, she has had no symptoms to suggest seizure or even aura, not even once in a blue wright burning smell that she had reported in September 2022. She continues on her main antiseizure medications, lamotrigine 400 mg twice a day and levetiracetam 1000 mg twice a day without side effects. The last dosage change was reduction of lamotrigine from 475 mg twice a day October 03, 2020, with associated resolution of blurry vision episodes.She also continues on the clonazepam 0.5 mg every 6 AM and 2 PM, which had been four daily episodes of uncertain etiology, possibly breakthrough seizure, possibly anxiety, possibly a combination. In any case, they continue to help with the sensation that she was having before that medication. However, she is having residual chronic symptoms of anxiety that is quite uncomfortable. She has psychiatry appointment at [facility] at the beginning of 2023 to address this.He continues with neuro-oncology intermittent follow-ups to monitor her tumor. March 30, 2023 follow-up showed no growth. She mentioned to the neuro oncologist daily headaches for as long as I can remember in her taoism, at least on the right, going down the side of her head and neck. Prescribed amitriptyline 10 mg daily and this has helped without side effects. She is down from ibuprofen 600 mg three times a day down to ibuprofen 600 mg once a day and the headache stays away until the next day. In addition, the headache has stayed localized in her taoism as opposed to previously extending down the side of her head and neck. She continues with light sensitivity, however.She also has had some stomach discomfort for which omeprazole has been started without side effects and with resolution of the stomach discomfort.Her two children are healthy and are doing well. >>>>>>>>>>>>>>>>>>>>> September 10, 2022Since November 26, 2021 neurology follow-up encounter, she has been doing well. The only issue continues to be smells. She continues to have occasional smells of [place] the context of the local [employer] a [place] next-door.However, once in a blue wright, she will have a burning smell reminiscent of seizure aura like phenomena she has had in the past. This may happen at any time but is more likely during her menses. There have been no other episodes to suggest characteristics of her seizure: No unusual d j vu, sense of doom, unexplainable sweatiness or tiredness.She continues on lamotrigine 400 mg twice a day and levetiracetam 1000 mg a day without any side effects. The last dosage change was reduction of lamotrigine from 475 mg twice a day with associated resolution of blurry vision episodes.Her mood is good. She continues on clonazepam 0.5 mg tablets at 6 AM and 2 PM; and mirtazapine 15 mg 7 PM, 1 hour before bedtime. Her two children are doing well, the baby , now 4 years old, with her today. Her fianc is doing well, at work currently.Her April and July follow-ups with oncology went well with no tumor growth found at both follow-ups. >>>>>>>>>>>>>>>>>>>>> November 26ince October 2021 neurology follow-up encounter, she has been doing fine until about 2 weeks ago when she started having random smells concerning her for seizure. The smell is one of [place], not the weird smell, which she used to have, which she now specifies more particularly as often a burnt smell. This has been happening 0-2 times per day. There has not been increasing frequency. She has been making more kielbasa recently. She also lives next to a local [employer].(!)She has not been missing any of her medications and we go through them particularly. No one else has changed any other medications. She has no new diagnoses. We reviewed that her last follow-up with oncology in [place] was September 1999 BRAIN MRI AT THAT TIME REFLECTED STABLE RESIDUAL TUMOR.She continues on lamotrigine 400 mg twice a day and levetiracetam 1000 mg a day without any side effects. The last dosage change was reduction of lamotrigine from 475 mg twice a day with associated resolution of blurry vision episodes. There has been no unusual tiredness, rocio vu, sense of doom or unexplainable sweatiness. She remains on clonazepam 0.5 mg twice a day which has been both for anxiety and for symptoms that seem to be seizures breakthrough in the morning and again in the afternoon. Her mood remains good on mirtazapine 15 mg at bedtime and she is sleeping well.Her two children are doing well. She is doing well with her fianc who proposed to her Mother's Day, 2020. >>>>>>>>>>>>>>>>>>>>> Presenting symptomatology is reviewed from initial neurology consultation January 22, 2017: She has had weird anxiety events since she was in high school (graduating class of 2010, although she dropped out and subsequently got GED). An event always starts with a sense of dj vu. She subsequently has a feeling of losing her breath, a sudden sense of doom, a feeling like she is falling as well as lightheadedness and sweatiness; she gets a taste in her mouth, chemical like. An event typically lasts about 1 minute. There is no reduction of awareness or responsiveness. Afterwards, she feels extremely tired but otherwise asymptomatic. Historically, they seemed to have always happened after she is worked up about something. Caffeine makes an event much more likely. Events happen at least once a month, not more than once a week. Her last 2 events were January 10 and January 18. At least one recent event scared her because it occurred when she was not worked up about anything, and it was longer than previous, up to 5 minutes. She cannot say whether of events have become more or less frequent in recent months. Meanwhile, on October 28, 2016, she had onset of a bad headache with emesis. She became paralyzed on her left side. Her memory for subsequent events of the next day or so is patchy. She was admitted to [facility] and diagnosed with a right temporal lobe/insular tumor. She was given steroids for 4 weeks and then had surgery November [address] Yanes. 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 She reports that only one chemotherapy agent could be offered to her because of the pathology analysis. This one has especially potent potential side effects. She has had a second opinion at [facility] and declined both chemotherapy and second surgery for resection of residual tumor which has significant attendant risks. She has also declined proton beam radiation therapy. Again per chart, single modality radiation is not indicated. Charles Quintero MD [address] [place] [address] [place], [id number], [facility] Neurology [facility] 10/18/2023 12:42:09 03/30/2024 text/html Follow-up of foc al seizures, exacerbated by tumor recurrence. Seizure episodes began 2010 or before with episodes of dj vu followed by several other symptoms, without loss of consciousness or responsiveness. 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 She is accompanied jasony her 4-year-old Komal; ; not present: significant other and her yourger daughter, Day. >>>>>>>>>>>>March 30, 2024Since October 18, 2023 Neurology follow-up encounter, she is again doing well. She again has had no symptoms to suggest seizure or aura. She is having no symptoms to suggest side effects from her lamotrigine and levetiracetam and clonazepam, and not from lamotrigine in particular.She is not having problems with sleep or anxiety either, continuing on mirtazapine 15 mg every evening, in addition to the clonazepam.She has been to [place] recently and there is no tumor recurrence. She is going every 4 months, next visit due next month, April 2024.Her headaches began to bother her again. At her recent [place] visit, she mentioned this since she had visit with headache specialist. They increased her amitriptyline back up to 20 mg. Her dry mouth is bothering her significantly. She continues on the higher dose. She has not noticed that it has helped her headaches incrementally. She states that this headache specialist knows about it. Trying to get Ajovy monthly migraine preventative subcutaneous injection approved. She knows it is some sort of injection, but does not know further details. She is scared. I described the pen injector and she understands it as like an EpiPen, which is correct. She is still apprehensive.Her family is doing well both kids in school, she adds with a thumbs up sign. >>>>>>>>>>>>October 18, 2023Since July 20, 2023 Neurology follow-up encounter she is doing great. She again has had no symptoms to suggest seizure or aura. She is having no symptoms to suggest side effects from her medications, and not from lamotrigine in particular.She has reduced amitriptyline from 20 mg nightly to 10 mg nightly. Her dry mouth is better.Headaches are not really bothering her. They occur 2-5 times per week but they are mild and short as ibuprofen takes care of them. She has discovered that she wears sunglasses this helps a lot in reducing headache severity and frequency. Bright light is a big trigger.Anxiety is not bothering her either.She has recently had her neuro-oncology follow-up in [place] and imaging again shows stable/no change situation status post partial tumor resection.Her daughter is excited about starting school in January and that the patient is excited about this as well. >>>>>>>>>>>>>>>>>>>>> July 20, 2023Since April 26, 2023 neurology follow-up encounter, she increased amitriptyline 10 mg nightly up to 15 mg nightly for a month and then up to 20 mg nightly and this has not helped her headaches more. Has caused dry mouth at both increased doses. She continues with headache but only needing one 600 mg dose of ibuprofen daily, and improvement that she reached from three doses daily before she started amitriptyline 10 mg nightly under auspices of neuro-oncology.She again has had no symptoms exact seizure or aura none of that. She continues on her main antiseizure medications, lamotrigine 400 mg twice a day and levetiracetam 1000 mg twice a day without side effects. The last dosage change was reduction of lamotrigine from 475 mg twice a day October 03, 2020, with associated resolution of blurry vision episodes.She also continues on the clonazepam 0.5 mg every 6 AM and 2 PM, which had been four daily episodes of uncertain etiology, possibly breakthrough seizure, possibly anxiety, possibly a combination. In any case, they continue to help with the sensation that she was having before that medication. However, she is having residual chronic symptoms of anxiety that is quite uncomfortable.She details that this is a feeling of internal shaking as she is going to sleep. She has seen [facility] neuropsychology for cognitive issues. They gave her referral for psychotherapy. She is unsure if this person was someone who could prescribe psychiatric medications. I asked her to ask at a follow-up. I also asked her to talk to oncology for a referral to someone such as this take over her anxiety. If they cannot, then I will continue prescribing for her anxiety.She continues with neuro-oncology intermittent follow-up and she just had her most recent follow-up and everything was fine. Her children are doing fine. >>>>>>>>>>>>>>>>>>>>> April 26, 2023Since September 10, 2022 neurology follow-up encounter, she has had no symptoms to suggest seizure or even aura, not even once in a blue wright burning smell that she had reported in September 2022. She continues on her main antiseizure medications, lamotrigine 400 mg twice a day and levetiracetam 1000 mg twice a day without side effects. The last dosage change was reduction of lamotrigine from 475 mg twice a day October 03, 2020, with associated resolution of blurry vision episodes.She also continues on the clonazepam 0.5 mg every 6 AM and 2 PM, which had been four daily episodes of uncertain etiology, possibly breakthrough seizure, possibly anxiety, possibly a combination. In any case, they continue to help with the sensation that she was having before that medication. However, she is having residual chronic symptoms of anxiety that is quite uncomfortable. She has psychiatry appointment at [facility] at the beginning of 2023 to address this.He continues with neuro-oncology intermittent follow-ups to monitor her tumor. March 30, 2023 follow-up showed no growth. She mentioned to the neuro oncologist daily headaches for as long as I can remember in her taoism, at least on the right, going down the side of her head and neck. Prescribed amitriptyline 10 mg daily and this has helped without side effects. She is down from ibuprofen 600 mg three times a day down to ibuprofen 600 mg once a day and the headache stays away until the next day. In addition, the headache has stayed localized in her taoism as opposed to previously extending down the side of her head and neck. She continues with light sensitivity, however.She also has had some stomach discomfort for which omeprazole has been started without side effects and with resolution of the stomach discomfort.Her two children are healthy and are doing well. >>>>>>>>>>>>>>>>>>>>> September 10, 2022Since November 26, 2021 neurology follow-up encounter, she has been doing well. The only issue continues to be smells. She continues to have occasional smells of [place] the context of the local [employer] factory next-door.However, once in a blue wright, she will have a burning smell reminiscent of seizure aura like phenomena she has had in the past. This may happen at any time but is more likely during her menses. There have been no other episodes to suggest characteristics of her seizure: No unusual d j vu, sense of doom, unexplainable sweatiness or tiredness.She continues on lamotrigine 400 mg twice a day and levetiracetam 1000 mg a day without any side effects. The last dosage change was reduction of lamotrigine from 475 mg twice a day with associated resolution of blurry vision episodes.Her mood is good. She continues on clonazepam 0.5 mg tablets at 6 AM and 2 PM; and mirtazapine 15 mg 7 PM, 1 hour before bedtime. Her two children are doing well, the baby , now 4 years old, with her today. Her fianc is doing well, at work currently.Her April and July follow-ups with oncology went well with no tumor growth found at both follow-ups. >>>>>>>>>>>>>>>>>>>>> November 26ince October 2021 neurology follow-up encounter, she has been doing fine until about 2 weeks ago when she started having random smells concerning her for seizure. The smell is one of kielbasa, not the weird smell, which she used to have, which she now specifies more particularly as often a burnt smell. This has been happening 0-2 times per day. There has not been increasing frequency. She has been making more kielbasa recently. She also lives next to a local [employer] factory.(!)She has not been missing any of her medications and we go through them particularly. No one else has changed any other medications. She has no new diagnoses. We reviewed that her last follow-up with oncology in [place] was September 1999 BRAIN MRI AT THAT TIME REFLECTED STABLE RESIDUAL TUMOR.She continues on lamotrigine 400 mg twice a day and levetiracetam 1000 mg a day without any side effects. The last dosage change was reduction of lamotrigine from 475 mg twice a day with associated resolution of blurry vision episodes. There has been no unusual tiredness, rocio vu, sense of doom or unexplainable sweatiness. She remains on clonazepam 0.5 mg twice a day which has been both for anxiety and for symptoms that seem to be seizures breakthrough in the morning and again in the afternoon. Her mood remains good on mirtazapine 15 mg at bedtime and she is sleeping well.Her two children are doing well. She is doing well with her fianc who proposed to her Mother's Day, 2020. >>>>>>>>>>>>>>>>>>>>> Presenting symptomatology is reviewed from initial neurology consultation January 22, 2017: She has had weird anxiety events since she was in high school (graduating class of 2010, although she dropped out and subsequently got GED). An event always starts with a sense of dj vu. She subsequently has a feeling of losing her breath, a sudden sense of doom, a feeling like she is falling as well as lightheadedness and sweatiness; she gets a taste in her mouth, chemical like. An event typically lasts about 1 minute. There is no reduction of awareness or responsiveness. Afterwards, she feels extremely tired but otherwise asymptomatic. Historically, they seemed to have always happened after she is worked up about something. Caffeine makes an event much more likely. Events happen at least once a month, not more than once a week. Her last 2 events were January 10 and January 18. At least one recent event scared her because it occurred when she was not worked up about anything, and it was longer than previous, up to 5 minutes. She cannot say whether of events have become more or less frequent in recent months. Meanwhile, on October 28, 2016, she had onset of a bad headache with emesis. She became paralyzed on her left side. Her memory for subsequent events of the next day or so is patchy. She was admitted to [facility] and diagnosed with a right temporal lobe/insular tumor. She was given steroids for 4 weeks and then had surgery November [address] Yanes. 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 She reports that only one chemotherapy agent could be offered to her because of the pathology analysis. This one has especially potent potential side effects. She has had a second opinion at [facility] and declined both chemotherapy and second surgery for resection of residual tumor which has significant attendant risks. She has also declined proton beam radiation therapy. Again per chart, single modality radiation is not indicated. Charles Quintero MD [address] [place] [address] [place], [phone], [facility] 03/30/2024 12:47:10 08/21/2024 text/html Follow-up of foc al seizures, exacerbated by tumor recurrence. Seizure episodes began 2010 or before with episodes of dj vu followed by several other symptoms, without loss of consciousness or responsiveness. 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 She is accompanied her son, who has a dentist appointment after; not present: her older daughter, Komal; ; not present: significant other or her yourger daughter, Day.>>>>>>>>>>>>Apri l 2024Since March 30, 2024 Neurology follow-up encounter, she has redeveloped episodic blurry vision. Events are occurring about five or six times per month, randomly at anytime of day. They involve some nausea. They are bad enough so that she goes to lie down. This helps only a little. If they are early in the morning, they tend to go away later in the morning, after her clonazepam dose. If they are middle of the day, they tend to go away after her 2 PM second clonazepam dose. She has no good memory of what happens if a blurry vision event happens later in the afternoon or later in the day.We reviewed our discussion July 20, 2023 that the last time this happened was leading to October 03, 2020 neurology follow-up encounter. Those blurry vision episodes correlated with mildly high lamotrigine blood level and the episode resolved with a reduction of lamotrigine from 475 mg twice a day down to current dose: 400 mg twice a day.Otherwise, she is doing well from seizure and tumor perspective. She has had no symptoms to suggest seizure or aura. 4 months ago, repeat brain MRI showed no new developments with her residual tumor. Her next neuro-oncology visit is tomorrow.She continues on all the medications I prescribed: Lamotrigine, levetiracetam, clonazepam and mirtazapine. She reports no problems with sleep or anxiety.She continues to work with [place] neurology on headache. Ximena worked well but was quite expensive: $800 per month on her insurance. I will continue to defer to [place] neurology on this.I did not ask if her blurry vision and nausea episodes correlate with headache. If not, I will focus on that possibility at a follow-up. >>>>>>>>>>>>March 30, 2024Since October 18, 2023 Neurology follow-up encounter, she is again doing well. She again has had no symptoms to suggest seizure or aura. She is having no symptoms to suggest side effects from her lamotrigine and levetiracetam and clonazepam, and not from lamotrigine in particular.She is not having problems with sleep or anxiety either, continuing on mirtazapine 15 mg every evening, in addition to the clonazepam.She has been to [place] recently and there is no tumor recurrence. She is going every 4 months, next visit due next month, April 2024.Her headaches began to bother her again. At her recent [place] visit, she mentioned this since she had visit with headache specialist. They increased her amitriptyline back up to 20 mg. Her dry mouth is bothering her significantly. She continues on the higher dose. She has not noticed that it has helped her headaches incrementally. She states that this headache specialist knows about it. Trying to get Ximena monthly migraine preventative subcutaneous injection approved. She knows it is some sort of injection, but does not know further details. She is scared. I described the pen injector and she understands it as like an EpiPen, which is correct. She is still apprehensive.Her family is doing well both kids in school, she adds with a thumbs up sign. >>>>>>>>>>>>October 18, 2023Since July 20, 2023 Neurology follow-up encounter she is doing great. She again has had no symptoms to suggest seizure or aura. She is having no symptoms to suggest side effects from her medications, and not from lamotrigine in particular.She has reduced amitriptyline from 20 mg nightly to 10 mg nightly. Her dry mouth is better.Headaches are not really bothering her. They occur 2-5 times per week but they are mild and short as ibuprofen takes care of them. She has discovered that she wears sunglasses this helps a lot in reducing headache severity and frequency. Bright light is a big trigger.Anxiety is not bothering her either.She has recently had her neuro-oncology follow-up in [place] and imaging again shows stable/no change situation status post partial tumor resection.Her daughter is excited about starting school in January and that the patient is excited about this as well. >>>>>>>>>>>>>>>>>>>>> July 20, 2023Since April 26, 2023 neurology follow-up encounter, she increased amitriptyline 10 mg nightly up to 15 mg nightly for a month and then up to 20 mg nightly and this has not helped her headaches more. Has caused dry mouth at both increased doses. She continues with headache but only needing one 600 mg dose of ibuprofen daily, and improvement that she reached from three doses daily before she started amitriptyline 10 mg nightly under auspices of neuro-oncology.She again has had no symptoms exact seizure or aura none of that. She continues on her main antiseizure medications, lamotrigine 400 mg twice a day and levetiracetam 1000 mg twice a day without side effects. The last dosage change was reduction of lamotrigine from 475 mg twice a day October 03, 2020, with associated resolution of blurry vision episodes.She also continues on the clonazepam 0.5 mg every 6 AM and 2 PM, which had been four daily episodes of uncertain etiology, possibly breakthrough seizure, possibly anxiety, possibly a combination. In any case, they continue to help with the sensation that she was having before that medication. However, she is having residual chronic symptoms of anxiety that is quite uncomfortable.She details that this is a feeling of internal shaking as she is going to sleep. She has seen [facility] for cognitive issues. They gave her referral for psychotherapy. She is unsure if this person was someone who could prescribe psychiatric medications. I asked her to ask at a follow-up. I also asked her to talk to oncology for a referral to someone such as this take over her anxiety. If they cannot, then I will continue prescribing for her anxiety.She continues with neuro-oncology intermittent follow-up and she just had her most recent follow-up and everything was fine. Her children are doing fine. >>>>>>>>>>>>>>>>>>>>> April 26, 2023Since September 10, 2022 neurology follow-up encounter, she has had no symptoms to suggest seizure or even aura, not even once in a blue wright burning smell that she had reported in September 2022. She continues on her main antiseizure medications, lamotrigine 400 mg twice a day and levetiracetam 1000 mg twice a day without side effects. The last dosage change was reduction of lamotrigine from 475 mg twice a day October 03, 2020, with associated resolution of blurry vision episodes.She also continues on the clonazepam 0.5 mg every 6 AM and 2 PM, which had been four daily episodes of uncertain etiology, possibly breakthrough seizure, possibly anxiety, possibly a combination. In any case, they continue to help with the sensation that she was having before that medication. However, she is having residual chronic symptoms of anxiety that is quite uncomfortable. She has psychiatry appointment at [facility] at the beginning of 2023 to address this.He continues with neuro-oncology intermittent follow-ups to monitor her tumor. March 30, 2023 follow-up showed no growth. She mentioned to the neuro oncologist daily headaches for as long as I can remember in her taoism, at least on the right, going down the side of her head and neck. Prescribed amitriptyline 10 mg daily and this has helped without side effects. She is down from ibuprofen 600 mg three times a day down to ibuprofen 600 mg once a day and the headache stays away until the next day. In addition, the headache has stayed localized in her taoism as opposed to previously extending down the side of her head and neck. She continues with light sensitivity, however.She also has had some stomach discomfort for which omeprazole has been started without side effects and with resolution of the stomach discomfort.Her two children are healthy and are doing well. >>>>>>>>>>>>>>>>>>>>> September 10, 2022Since November 26, 2021 neurology follow-up encounter, she has been doing well. The only issue continues to be smells. She continues to have occasional smells of Kielbasa the context of the local [employer] factory next-door.However, once in a blue wright, she will have a burning smell reminiscent of seizure aura like phenomena she has had in the past. This may happen at any time but is more likely during her menses. There have been no other episodes to suggest characteristics of her seizure: No unusual d j vu, sense of doom, unexplainable sweatiness or tiredness.She continues on lamotrigine 400 mg twice a day and levetiracetam 1000 mg a day without any side effects. The last dosage change was reduction of lamotrigine from 475 mg twice a day with associated resolution of blurry vision episodes.Her mood is good. She continues on clonazepam 0.5 mg tablets at 6 AM and 2 PM; and mirtazapine 15 mg 7 PM, 1 hour before bedtime. Her two children are doing well, the baby , now 4 years old, with her today. Her fianc is doing well, at work currently.Her April and July follow-ups with oncology went well with no tumor growth found at both follow-ups. >>>>>>>>>>>>>>>>>>>>> November 26ince October 2021 neurology follow-up encounter, she has been doing fine until about 2 weeks ago when she started having random smells concerning her for seizure. The smell is one of kielbasa, not the weird smell, which she used to have, which she now specifies more particularly as often a burnt smell. This has been happening 0-2 times per day. There has not been increasing frequency. She has been making more kielbasa recently. She also lives next to a local [employer] factory.(!)She has not been missing any of her medications and we go through them particularly. No one else has changed any other medications. She has no new diagnoses. We reviewed that her last follow-up with oncology in [place] was September 1999 BRAIN MRI AT THAT TIME REFLECTED STABLE RESIDUAL TUMOR.She continues on lamotrigine 400 mg twice a day and levetiracetam 1000 mg a day without any side effects. The last dosage change was reduction of lamotrigine from 475 mg twice a day with associated resolution of blurry vision episodes. There has been no unusual tiredness, rocio vu, sense of doom or unexplainable sweatiness. She remains on clonazepam 0.5 mg twice a day which has been both for anxiety and for symptoms that seem to be seizures breakthrough in the morning and again in the afternoon. Her mood remains good on mirtazapine 15 mg at bedtime and she is sleeping well.Her two children are doing well. She is doing well with her fianc who proposed to her Mother's Day, 2020. >>>>>>>>>>>>>>>>>>>>> Presenting symptomatology is reviewed from initial neurology consultation January 22, 2017: She has had weird anxiety events since she was in high school (graduating class of 2010, although she dropped out and subsequently got GED). An event always starts with a sense of dj vu. She subsequently has a feeling of losing her breath, a sudden sense of doom, a feeling like she is falling as well as lightheadedness and sweatiness; she gets a taste in her mouth, chemical like. An event typically lasts about 1 minute. There is no reduction of awareness or responsiveness. Afterwards, she feels extremely tired but otherwise asymptomatic. Historically, they seemed to have always happened after she is worked up about something. Caffeine makes an event much more likely. Events happen at least once a month, not more than once a week. Her last 2 events were January 10 and January 18. At least one recent event scared her because it occurred when she was not worked up about anything, and it was longer than previous, up to 5 minutes. She cannot say whether of events have become more or less frequent in recent months. Meanwhile, on October 28, 2016, she had onset of a bad headache with emesis. She became paralyzed on her left side. Her memory for subsequent events of the next day or so is patchy. She was admitted to [facility] and diagnosed with a right temporal lobe/insular tumor. She was given steroids for 4 weeks and then had surgery November [address] Ynaes. 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 She reports that only one chemotherapy agent could be offered to her because of the pathology analysis. This one has especially potent potential side effects. She has had a second opinion at [facility] and declined both chemotherapy and second surgery for resection of residual tumor which has significant attendant risks. She has also declined proton beam radiation therapy. Again per chart, single modality radiation is not indicated. Charles Quintero MD [address] [place] [address] [place], [phone], [facility] Neurology [facility] 08/21/2024 12:48:41 OBGyn Episode No OBEpisode recorded.
--- OUTSIDE RECORDS SUMMARY | 2024-11-17 11:41 | XMS_ITS | Clinical Summary ---
Author Organization [facility] it Address [address] [place] [address] Care Team Providers Care Banking And Finance Instructor Name Role Phone Toro Garcia MD Primary Care Provider [phone] Surgical History Surgery Date Site/Laterality Comments APPENDECTOMY PROCEDURE: HISTORICAL APPENDECTOMY OTHER SURGICAL HISTORY 11/2016 PROCEDURE: RI CRNEC EXC BRAIN TUMOR INFRATENTORIAL/POST FOSSA; COMMENT: Dr. 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 Staley, [facility]. Epilepsy (CMS/HCC V24, CMS/HCC V28) DX:Epilepsy (HCC) Bipolar disease, chronic (CM S/HCC V24, CMS/HCC V28) 03/23/2018 DX:Bipolar disease, chronic (HCC) Family History Medical History Relation Name Comments No Known Problems Brother 1 No Known Problems Brother 2 Hypertension Father no paternal GP hx as father was adopted Other: ptsd Maternal Grandfather Diabetes Maternal Grandmother No Known Problems Mother Other: spina bifida Other a first cousin and second cousin No Known Problems Sister SIDS Breast cancer Neg Hx Cervical cancer Neg Hx Ovarian cancer Neg Hx Uterine cancer Neg Hx Relation Name Status Comments Brother 1 Alive Brother 2 Alive Father Alive Maternal Grandfather Alive Maternal Grandmother Alive Mother Alive Other Sister , crib Social History Tobacco Use Types Packs/Day Years Used Date Smoking Tobacco: Never Smokeless Tobacco: Never Alcohol Use Standard Drinks/Week Comments No 0 (1 standard drink = 0.6 oz pur e alcohol) Comments Unknown Sex and Gender Information Value Date Recorded Sex Assigned at Not on file Legal Sex Female 7:01 PM EST Gender Identity Not on file Sexual Orientation Not on file Obstetrics History Plan of Treatment Health Maintenance Due Date Last Done Comments COVID-19 Vaccine (#1) 1998 HPV Vaccines (2 - Risk 3-dose series) 12/04/2008 11/06/2008 Pneumococcal Vaccine: Pediatrics (0 to 5 Years) and At-Risk Patients (6 to 49 Years) (1 of 2 - PCV) 01/12/2012 Cervical Cancer Screening: Pap Smear 01/12/2021 01/12/2018 Depression Screening 04/11/2022 Hepatitis C Screening 04/11/2022 Social Influencers of Health Screening 04/11/2022 Influenza Vaccine (#1) 2025 9, 03/28/2018, 03/10/2018 DTaP,Tdap,and Td Vaccines (10 - Td or Tdap) 05/12/2028 05/12/2018, 04/09/2018, 10/31/2011, Additional history exists Hepatitis B Vaccines Completed 1993, 1993, 1993 HIB Vaccines Completed 04/16/1994, 12/1993, 1993, Additional history exists MMR Vaccines Completed 01/15/1997, 04/09/1994 IPV Vaccines Completed 01/01/1998, 12/1993, 1993, Additional history exists Meningococcal ACWY Vaccine Aged Out 07/27/2005 N o longer eligible based on patient's age to complete this topic Varicella Vaccines Completed 11/06/2008, 01/01/1998 HIV Screening Completed 10/10/2020 Hepatitis A Vaccines Aged Out No long er eligible based on patient's age to complete this topic Meningococcal B Vaccine Aged Out No l onger eligible based on patient's age to complete this topic RSV Immunization Patients Under 20 months Aged Out No longer eligible based on patient's age to complete this topic Procedures Procedure Name Priority Date/Time Associated Diagnosis Comments PAP SMEAR Routine 01/12/2018 from Last 3 Months or Most Recently Relevant to Health Maintenance Results * Pap smear (01/12/2018) 01/12/2018 Narrative HISTORICAL TESTING LAB RESULTING AGENCY - 01/20/2018 2:15 PM EDT [id number] THINPREP PAP, IMAGED: ATYPICAL SQUAMOUS CELLS OF UNDETERMINED SIGNIFICANCE (ASCUS) . RESULTS OF APTIMA HIGH RISK HPV ASSAY: POSITIVE (SEROTYPES 16,18,31,33,35, 39,45,51,52,56,58,59,66,68) MAGGIE LR(ASCP) (CASE SCREENED 01 14 2018) RODDY RUIZ M.D., PATHOLOGIST (CASE ELECTRONICALLY SIGNED 01 19 2018) ADEQUACY: SATISFACTORY. ENDOCERVICAL/TRANSFORMATION ZONE COMPONENT PRESENT. SOURCE: THINPREP PAP HPV IF ASCUS, CERVICAL, IMAGED: CLINICAL INFORMATION: HPV IF DIAGNOSIS OF ASCUS. , PAP HX NEG [Z12.4] us Gerard Blackburn [facility] CYTOLOGY ORDERA BLES Final Result HISTORICAL TESTING LAB RESULTING AGENCY from Last 3 Months or Most Recently Relevant to Health Maintenance Care Teams Banking And Finance Instructor Relationship Specialty Start Date End Date Toro Garcia MD [address] [place] [address] PCP - General Internal Medicine 01/11/18
--- OUTSIDE RECORDS SUMMARY | 2024-11-17 11:41 | XMS_ITS | Encounter Summary ---
Author Organization [employer] Address [address] [place] [address] [place] [address] Care Team Providers Care Rehabilitation Counselor Name Role Phone Billy Bermudez MD Primary Care Prov ider Encounter Details Date Type Department Care Team (Latest Contact Info) Description 09/12/2020 Abstract [facility] CONVERSIONS Dental, Provider, DDS Social History Tobacco Use Types Packs/Day Years Used Date Smoking Tobacco: Never Assessed Comments Unknown Sex and Gender Information Value Date Recorded Sex Assigned at Female 03/09/2022 10:36 AM EDT Legal Sex Female 10:36 AM EDT Gender Identity Female 03/09/2022 10:36 AM EDT Sexual Orientation Straight 03/09/2022 10 :36 AM EDT documented as of this encounter Plan of Treatment Not on file documented as of this encounter Visit Diagnoses Not on filedocumented in this encounter Care Teams Rehabilitation Counselor Relationship Specialty Start Date End Date Billy Bermudez MD [address] [place] [address] PCP - General Internal Medicine 05/24/20 documented as of this encounter
--- OUTSIDE RECORDS SUMMARY | 2024-11-17 11:41 | XMS_ITS | Clinical Summary ---
Author Organization [facility] Address [address] [place] [address] Care Team Providers Care Guest Relations Agent Name Role Phone Quirino Tay MD Primary Care Provider [phone] Allergies No known active allergies Medications Medication Sig Dispensed Refills Start Date End Date Status Vit-Fe Fumarate-FA ([facility] ) 28-0.8 MG TABS Take 1 tablet by mouth. 0 Active lamoTRIgine 200 MG TBDP Take 400 mg by mouth 2 (two) times a day. 0 Active Active Problems Problem Noted Date Diagnosed Date Spina bifida 01/17/2018 care, subsequent 12/29/2017 Overview: Overview: 1. [facility] site: [place] 2. Delivery site: [facility] [place] 3. Dating criteria: dating u/s ordered 3. Blood type: 4. Genetic screening: Date: Result: 5. GBS: Date: 6. FOB name: 7. Plans A. Epidural or other pain management - B. Labor support identified - C. Tdap - Date: D. Breast or Bottle feed: breast E. Baby's name - F. Circumcision - Zika assessment screening: negative Rh negative state in antepartum period 8 Anxiety 12/30/2016 Depression 12/30/2016 Diffuse astrocytoma 12/30/2016 Seizure disorder 12/30/2016 Glioma of brain 12/16/2016 Family History Medical History Relation Name Comments No Sig Med Hx Brother 1 No Sig Med Hx Brother 2 No Sig Med Hx Father No Sig Med Hx Mother Breast cancer Other maternaGreat grandmother Relation Name Status Comments Brother 1 Alive Brother 2 Alive Daughter Alive Father Alive father was adop toshia Mother Alive Other maternaGreat grandmother Sister (Age 9 months) SIDS Son Alive Social History Tobacco Use Types Packs/Day Years Used Date Smoking Tobacco: Never Smokeless Tobacco: Never Alcohol Use Standard Drinks/Week Comments Yes 8 (1 standard drink = 0.6 oz pur e alcohol) Sex and Gender Information Value Date Recorded Sex Assigned at Not on file Gender Identity Not on file Sexual Orientation Not on file Last Filed Vital Signs Vital Sign Reading Time Taken Comments Blood Pressure 124/63 03/23/2018 9:36 AM EST Pulse 86 03/23/2018 9:36 AM EST Temperature - - Respiratory Rate - - Oxygen Saturation - - Inhaled Oxygen Concentration - - Weight 68.9 kg (152 lb) 03/23/2018 9:36 AM EST Height 160 cm (5' 3 ) 03/23/2018 9:36 AM EST Body Mass Index 26.93 03/23/2018 9:36 AM EST Plan of Treatment Health Maintenance Due Date Last Done Comments Hepatitis C Screening 1993 COVID-19 Vaccine (#1) 1998 Pneumococcal Vaccine (1 of 2 - PCV) 1999 Depression Screening 2005 Preventative Health Evaluation 2011 Cervical Cancer Screening (Pap Smear) 2014 DTap / Tdap / Td (7 - Td or Tdap) 07/28/2015 07/27/2005, 01/01/1998, 07/30/1994, Additional history exists Influenza Vaccine (#1) 2025 Hepatitis B Vaccines Completed 1993, 1993, 1993 RSV Ped < 20 months Aged Out No longe r eligible based on patient's age to complete this topic Care Teams Guest Relations Agent Relationship Specialty Start Date End Date Quirino Tay MD [address] [place] [id number] PCP - General Internal Medicine 11/17/16
[2024-11-17 15:24] LABS: Cholesterol 178 mg/dL (<200); HDL Cholesterol 54 mg/dL (>40); Triglycerides 126 mg/dL (<150)
== END 2024-11-17 11:04 | disposition home or self-care (01) ==
LOC: HO.CHCLDS 11:03
PROVIDERS: Visit Provider Internal Medicine
DX: E66.811 Obesity, class 1 (principal); Z68.30 Body mass index [BMI] 30.0-30.9, adult; F41.1 Generalized anxiety disorder; E66.01 Morbid (severe) obesity due to excess calories
CPT/HCPCS: 36415; 80061; 84443